=== PATIENT | female | born 1945 ===

== ENCOUNTER 2018-10-29 21:34 | Inpatient (IN) | payer MEDICARE ==
[2018-10-29 21:35] VITALS: BMI 24.4
--- NOTE | 2018-10-29 21:53 | C.PDOC ---
History Of Present Illness 73 year old female with PMHx of CABG, CAD, COPD, HTN and HLD presents to the ED for evaluation of headache, fever and chest pain for the last few days. Patient reports she has been taking unknown antibiotics left over at home. Patient is poor historian. Patient denies SOB, palpitations, nausea, vomit, diarrhea, abdominal pain. Time Seen by Provider: 10/29/18 21:42 Chief Complaint (Nursing): Chest Pain History Per: Patient History/Exam Limitations: no limitations Onset/Duration Of Symptoms: Days Current Symptoms Are (Timing): Still Present Quality: "Pain" Recent travel outside of the [place]: No Additional History Per: Patient Past Medical History Reviewed: Historical Data, Nursing Documentation, Vital Signs Vital Signs: Last Vital Signs Temp 98.5 F 10/29/18 21:42 Pulse 74 10/29/18 21:42 Resp 20 10/29/18 21:42 BP 167/82 H 10/29/18 21:42 Pulse Ox 96 10/29/18 21:42 Primary Care Provider: Cedric Barrientos - Medical History PMH: Anxiety, Arthritis, Back Problems (herniated discs), CAD, CHF, COPD, Depr ession, Diabetes, Deep Vein Thrombosis, Emphysema, HTN, Hypercholesterolemia, Hyperlipidemia Denies: Kidney Stones, Chronic Kidney Disease Surgical History: Appendectomy (1964), CABG (x4), Cholecystectomy (2001), Coronary Stent (x7), Pacemaker (mar 2010), Tonsillectomy (9 yrs old) - [facility] Procedures DRAINAGE OF SIGMOID COLON, ENDO, DIAGN (05/13/15) INJECT/INFUSE NEC (08/10/14) Family History: States: Unknown Family Hx - Social History Hx Tobacco Use: Yes Hx Alcohol Use: No Hx Substance Use: No - Immunization History Hx Tetanus Toxoid Vaccination: No Hx Influenza Vaccination: Yes Hx Pneumococcal Vaccination: Yes Review Of Systems Constitutional: Positive for: Fever. Negative for: Chills Cardiovascular: Positive for: Chest Pain. Negative for: Palpitations Respiratory: Positive for: Cough. Negative for: Shortness of Breath Skin: Negative for: Rash Neurological: Positive for: Headache. Negative for: Weakness, Numbness, Dizziness Physical Exam - Physical Exam Appears: Non-toxic, No Acute Distress Skin: Normal Color, Warm, Dry Head: Atraumatic, Normacephalic Eye(s): bilateral: Normal Inspection Neck: Normal ROM, Supple Chest: Symmetrical Cardiovascular: Rhythm Regular Respiratory: Decreased Breath Sounds (symmetrically), Rales (at the bases bilaterally) Gastrointestinal/Abdominal: Soft, No Tenderness Extremity: Normal ROM, No Tenderness, No Pedal Edema Neurological/Psych: Oriented x3, Normal Speech, Normal Cognition Gait: Steady ED Course And Treatment - Laboratory Results Result Diagrams: 10/29/18 22:20 10/29/18 22:20 ECG: Interpreted By Me, Viewed By Me ECG Rhythm: A Paced Rate From EC (BPM) O2 Sat by Pulse Oximetry: 96 (ON RA) Pulse Ox Interpretation: Normal Medical Decision Making Medical Decision Making: suspect copd/pnaPlan: * EKG * Labs * CXR * Duoneb x2 * Avelox 400 mg IVP * Solumedrol 125 mg IVP * Blood culture * UA cxr mild congestion vs bibasilar atelectasis infiltrate antibiotics given. accepted dr turcios, [facility] service. wheezing symptom simproving but persisetn. Disposition - Disposition Disposition: HOSPITALIZED Disposition Time: 01:00 Condition: STABLE - Clinical Impression Clinical Impression: COPD with acute exacerbation, Chest pain - Scribe Statement The provider has reviewed the documentation as recorded by the Scribe Kavon Licea All medical record entries made by the Scribe were at my direction and personally dictated by me. I have reviewed the chart and agree that the record accurately reflects my personal performance of the history, physical exam, medi [facility]ana decision making, and the department course for this patient. I have also personally directed, reviewed, and agree with the discharge instructions and disposition. Decision To Admit - Pt Status Changed To: Hospital Disposition Of: Observation - . Bed Request Type: Telemetry Admitting Physician: Jeffrey Turcios Patient Diagnosis: COPD with acute exacerbation, Chest pain
[2018-10-29] MEDS ORDERED: Albuterol-Ipratrop 3 mg / 0.5 (3 ml) UD INH STA ×2 (22:09)
[2018-10-29] MEDS ORDERED: MethylPREDNISolone 40 mg Vial IVP STA (22:09)
[2018-10-29 22:25] LABS: BASO % 0.4 % (0.0-2.0); EOS # 0.2 K/uL (0.0-0.7); EOS % 2.1 % (0.0-4.0); HEMOGLOBIN 12.8 g/dL (11.0-16.0); LYMPH # 2.7 K/uL (1.0-4.3); LYMPH % 25.9 % (20.0-40.0); MEAN CORPUSCULAR HEMOGLOBIN 29.5 pg (27.0-31.0); MEAN CORPUSCULAR HGB CONC 33.2 g/dL (33.0-37.0); MEAN PLATELET VOLUME 7.9 fL (7.2-11.7); MONO # 0.8 K/uL (0.0-0.8); MONO % 7.3 % (0.0-10.0); NEUT # 6.8 K/uL (1.8-7.0); NEUT % 64.3 % (50.0-75.0); RBC 4.32 Mil/uL (3.80-5.20); RED CELL DISTRIBUTION WIDTH 13.5 % (11.5-14.5); WHITE BLOOD COUNT 10.6 K/uL (4.8-10.8)
[2018-10-29 22:32] LABS: MEAN CELL VOLUME 88.9 fL (81.0-99.0)
[2018-10-29 22:33] LABS: INR 1.1; PARTIAL THROMBOPLASTIN TIME 37.6 SECONDS (21-34)
[2018-10-29 22:35] LABS: ALB/GLOB RATIO 1.2 (1.0-2.1); ALBUMIN 4.1 g/dL (3.5-5.0); ALT/SGPT 39 U/L (9-52); AST/SGOT 37 U/L (14-36); BLOOD UREA NITROGEN 18 mg/dL (7-17); CALCIUM 9.4 mg/dl (8.6-10.4); GFR NON-AFRICAN AMERICAN 34
[2018-10-29] MEDS ORDERED: Albuterol 0.083% Inhal Sol (2.5 mg/3 mL) UD ONE (22:44)
[2018-10-29] MEDS ORDERED: Ipratropium 0.02% Inhal Soln (0.5 mg/2.5 ml) UD IH ONE (22:45)
[2018-10-29 22:48] LABS: B-TYPE NATRIURETIC PEPTIDE 760 pg/mL (0-900)
[2018-10-29] MEDS ORDERED: Moxifloxacin IV 400mg/250ml NS 400 MG/250 ML BAG IVPB ONE ×2 (22:56→23:09)
[2018-10-29] MEDS ORDERED: guaiFENesin 200 mg/10 ml Syrup UD PO PRN (23:41)
[2018-10-30] MEDS ORDERED: Albuterol HFA 90 mcg/actuation (8 g) IH SCH
[2018-10-30] MEDS: Albuterol-Ipratrop 3 mg / 0.5 (3 ml) UD INH SCH ×4 (01:26→20:27)
[2018-10-30 02:59] LABS: GRANULAR CAST 2 /lpf (0-1); SQUAMOUS EPITHIAL 2 /hpf (0-5); URINE BACTERIA RARE (<OCC); URINE BILIRUBIN NEGATIVE (NEGATIVE); URINE BLOOD NEGATIVE (NEGATIVE); URINE CLARITY Hazy (Clear); URINE COLOR Yellow (YELLOW); URINE GLUCOSE (UA) NORMAL (Normal); URINE LEUKOCYTE ESTERASE 3+ Leu/uL (Negative); URINE PROTEIN NEGATIVE (NEGATIVE)
--- NOTE | 2018-10-30 07:07 | RAD ---
Date of service: 10/29/2018 HISTORY: chest pain COMPARISON: Chest x-ray 06/02/2016 TECHNIQUE: Chest one view . FINDINGS: LUNGS: Questionable mild pulmonary vascular congestion PLEURA: No pleural effusion is identified. CARDIOVASCULAR: Heart size is within normal limits. Atherosclerotic calcifications noted of the aorta. Stable multi lead left-sided cardiac pacemaker/AICD with lead tips overlying the region of the right atrium, right ventricle, and coronary sinus. OSSEOUS STRUCTURES: Median sternotomy wires and mediastinal surgical clips are noted. Mild hypertrophic degenerative changes noted of the bilateral acromioclavicular joints. VISUALIZED UPPER ABDOMEN: Unremarkable. OTHER FINDINGS: None. IMPRESSION: Questionable mild pulmonary vascular congestion. additional findings as above.
[2018-10-30] MEDS ORDERED: Enoxaparin 40 mg Syringe SC SCH (10:00)
[2018-10-30] MEDS ORDERED: Home Med 1 UNIT (Naloxegol Oxalate [Movantik] 25 MG) PO SCH (10:00)
[2018-10-30] MEDS ORDERED: ATORVASTATIN 10 MG PO SCH (10:00)
[2018-10-30] MEDS: Fluticasone Nasal 50 mcg/Spray NS SCH (13:00)
[2018-10-30 15:48] LABS: CK-MB 1.54 ng/mL (0.0-3.38)
[2018-10-30] MEDS: Enoxaparin 30 mg Syringe SC SCH (19:00)
[2018-10-30] MEDS ORDERED: Home Med 1 UNIT (Melatonin [Melatonin] 10 MG) PO SCH (22:00)
--- NOTE | 2018-10-30 22:17 | CP.PCM.CON ---
History of Present Illness - History of Present Illness History of Present Illness: 73 year old female with PMHx of CABG, CAD, COPD, HTN and HLD presents to the ED for evaluation of headache, fever and chest pain for the last few days. Patient reports she has been taking unknown antibiotics left over at home. Patient is poor historian. Patient denies SOB, palpitations, nausea, vomit, diarrhea, abdominal pain. Chief Complaint (Nursing): Chest Pain History Per: Patient History/Exam Limitations: no limitations Onset/Duration Of Symptoms: Days Current Symptoms Are (Timing): Still Present Quality: "Pain" Recent travel outside of the [place]: No Additional History Per: Patient Primary Care Provider: Cedric Barrientos - Medical History PMH: Anxiety, Arthritis, Back Problems (herniated discs), CAD, CHF, COPD, Depression, Diabetes, Deep Vein Thrombosis, Emphysema, HTN, Hypercholesterolemia, Hyperlipidemia Denies: Kidney Stones, Chronic Kidney Disease Surgical History: Appendectomy (1964), CABG (x4), Cholecystectomy (2001), Coronary Stent (x7), Pacemaker (mar 2010), Tonsillectomy (9 yrs old) - [facility] Procedures DRAINAGE OF SIGMOID COLON, ENDO, DIAGN (05/13/15) INJECT/INFUSE NEC (08/10/14) Family History: States: Unknown Family Hx - Social History Hx Tobacco Use: Yes Hx Alcohol Use: No Hx Substance Use: No - Immunization History Hx Tetanus Toxoid Vaccination: No Hx Influenza Vaccination: Yes Hx Pneumococcal Vaccination: Yes Review Of Systems Constitutional: Positive for: Fever. Negative for: Chills Cardiovascular: Positive for: Chest Pain. Negative for: Palpitations Respiratory: Positive for: Cough. Negative for: Shortness of Breath Skin: Negative for: Rash Neurological: Positive for: Headache. Negative for: Weakness, Numbness, Dizziness Physical Exam - Physical Exam Appears: Non-toxic, No Acute Distress Skin: Normal Color, Warm, Dry Head: Atraumatic, Normacephalic Eye(s): bilateral: Normal Inspection Neck: Normal ROM, Supple Chest: Symmetrical Cardiovascular: Rhythm Regular Respiratory: Decreased Breath Sounds (symmetrically), Rales (at the bases bilaterally) Gastrointestinal/Abdominal: Soft, No Tenderness Extremity: Normal ROM, No Tenderness, No Pedal Edema Neurological/Psych: Oriented x3, Normal Speech, Normal Cognition Gait: Steady Past Patient History - Infectious Disease Hx of Infectious Diseases: None - Past Medical History & Family History Past Medical History?: Yes - Past Social History Smoking Status: Light Smoker < 10 Cigarettes Daily - CARDIAC Hx Congestive Heart Failure: Yes Hx Hypercholesterolemia: Yes Hx Hypertension: Yes - PULMONARY Hx Chronic Obstructive Pulmonary Disease (COPD): Yes - NEUROLOGICAL Hx Neurological Disorder: No - HEENT Hx HEENT Problems: Yes Hx Cataracts: Yes (removed) - RENAL Hx Chronic Kidney Disease: No Hx Kidney Stones: No - ENDOCRINE/METABOLIC Hx Diabetes Mellitus Type 2: Yes - HEMATOLOGICAL/ONCOLOGICAL Hx Blood Disorders: No - INTEGUMENTARY Hx Dermatological Problems: No - MUSCULOSKELETAL/RHEUMATOLOGICAL Hx Arthritis: Yes - GASTROINTESTINAL Hx Gastrointestinal Disorders: No - GENITOURINARY/GYNECOLOGICAL Hx Genitourinary Disorders: No - PSYCHIATRIC Hx Anxiety: Yes Hx Depression: Yes Hx Substance Use: No - SURGICAL HISTORY Hx Appendectomy: Yes (1963) Hx Cholecystectomy: Yes (2001) Hx Coronary Artery Bypass Graft: Yes (x4) Hx Coronary Stent: Yes (x7) Hx Tonsillectomy: Yes (9 yrs old) - ANESTHESIA Hx Anesthesia: Yes Hx Anesthesia Reactions: No Hx Malignant Hyperthermia: No Meds Allergies/Adverse Reactions: Allergies Allergy/AdvReac Type Severity Reaction Status Date / Time acetaminophen [From Percocet] Allergy Verified 10/29/18 21:48 allopurinol Allergy Verified 10/29/18 22:06 ketorolac tromethamine Allergy Verified 10/29/18 21:48 [From Toradol] oxycodone HCl [From Percocet] Allergy Verified 10/29/18 21:48 pregabalin [From Lyrica] Allergy Verified 10/29/18 22:08 - Medications Medications: Current Medications Albuterol/Ipratropium (Duoneb 3 Mg/0.5 Mg (3 Ml) Ud) 3 ml INH RQ6 [facility] Last Admin: 10/30/18 20:27 Dose: 3 ml Alprazolam (Xanax) 0.25 mg PO HS [facility] Last Admin: 10/30/18 01:55 Dose: 0.25 mg Aspirin (Ecotrin) 81 mg PO DAILY [facility] Last Admin: 10/30/18 09:15 Dose: 81 mg Carvedilol (Coreg) 12.5 mg PO BID [facility] Last Admin: 10/30/18 19:00 Dose: 12.5 mg Clopidogrel Bisulfate (Plavix) 75 mg PO DAILY [facility] Last Admin: 10/30/18 09:14 Dose: 75 mg Enoxaparin Sodium (Lovenox) 30 mg SC Q24H [facility] Last Admin: 10/30/18 19:00 Dose: 30 mg Fluticasone Propionate (Flonase) 1 spr NS DAILY [facility] Last Admin: 10/30/18 13:00 Dose: 1 spr Furosemide (Lasix) 40 mg IVP DAILY [facility] Last Admin: 10/30/18 19:00 Dose: 40 mg Guaifenesin (Robitussin) 200 mg PO Q4H PRN PRN Reason: Cough and congestion Ceftriaxone Sodium 1 gm/ (Sodium Chloride) 100 mls @ 100 mls/hr IVPB Q12H [facility]; Protocol Last Admin: 10/30/18 11:30 Dose: 100 mls/hr Isosorbide Mononitrate (Imdur) 60 mg PO DAILY [facility] Methylprednisolone (Solu-Medrol) 60 mg IV Q12 [facility] Last Admin: 10/30/18 21:13 Dose: 60 mg Mirtazapine (Remeron) 15 mg PO HS [facility] Last Admin: 10/30/18 21:12 Dose: 15 mg Morphine Sulfate (Morphine) 2 mg IVP Q6H PRN PRN Reason: Pain, severe (8-10) Last Admin: 10/30/18 16:07 Dose: 2 mg Rosuvastatin Calcium (Crestor) 5 mg PO HS [facility] Last Admin: 10/30/18 21:12 Dose: 5 mg Sertraline HCl (Zoloft) 50 mg PO DAILY [facility] Last Admin: 10/30/18 11:29 Dose: 50 mg Results - Vital Signs Recent Vital Signs: Last Vital Signs Temp 98.3 F 10/30/18 15:29 Pulse 80 10/30/18 19:00 Resp 20 10/30/18 15:29 BP 177/78 H 10/30/18 19:00 Pulse Ox 98 10/30/18 15:29 - Labs Result Diagrams: 10/29/18 22:20 10/29/18 22:20 Labs: Laboratory Results - last 24 hr 10/29/18 10/29/18 10/29/18 22:20 22:20 22:20 WBC 10.6 RBC 4.32 Hgb 12.8 Hct 38.4 MCV 88.9 D MCH 29.5 MCHC 33.2 RDW 13.5 Plt Count 317 MPV 7.9 Neut % (Auto) 64.3 Lymph % (Auto) 25.9 Cal[place]oun % (Auto) 7.3 Eos % (Auto) 2.1 Baso % (Auto) 0.4 Neut # (Auto) 6.8 Lymph # (Auto) 2.7 [place]oun # (Auto) 0.8 Eos # (Auto) 0.2 Baso # (Auto) 0.0 PT 12.0 INR 1.1 APTT 37.6 H Sodium 139 Potassium 4.2 Chloride 102 Carbon Dioxide 29 Anion Gap 13 BUN 18 H Creatinine 1.5 H Est GFR ( Amer) 41 Est GFR (Non-Af Amer) 34 Random Glucose 113 H D Calcium 9.4 Total Bilirubin 0.3 AST 37 H ALT 39 Alkaline Phosphatase 139 H Total Creatine Kinase CK-MB (Mass) Troponin I < 0.0120 NT-Pro-B Natriuret Pep 760 Total Protein 7.4 Albumin 4.1 Globulin 3.3 Albumin/Globulin Ratio 1.2 Urine Color Urine Clarity Urine pH Ur Specific [place] Urine Protein Urine Glucose (UA) Urine Ketones Urine Blood Urine Nitrate Urine Bilirubin Urine Urobilinogen Ur Leukocyte Esterase Urine WBC (Auto) Urine RBC (Auto) Ur Squamous Epith Cells Urine Bacteria Hyaline Casts Granular Casts (Auto) 10/30/18 10/30/18 02:51 14:40 WBC RBC Hgb Hct MCV MCH MCHC RDW Plt Count MPV Neut % (Auto) Lymph % (Auto) [place]oun % (Auto) Eos % (Auto) Baso % (Auto) Neut # (Auto) Lymph # (Auto) [place]oun # (Auto) Eos # (Auto) Baso # (Auto) PT INR APTT Sodium Potassium Chloride Carbon Dioxide Anion Gap BUN Creatinine Est GFR ( Amer) Est GFR (Non-Af Amer) Random Glucose Calcium Total Bilirubin AST ALT Alkaline Phosphatase Total Creatine Kinase 69 CK-MB (Mass) 1.54 Troponin I < 0.0120 NT-Pro-B Natriuret Pep Total Protein Albumin Globulin Albumin/Globulin Ratio Urine Color Yellow Urine Clarity Hazy Urine pH 6.0 Ur Specific [place] 1.026 Urine Protein Negative Urine Glucose (UA) Normal Urine Ketones Negative Urine Blood Negative Urine Nitrate Negative Urine Bilirubin Negative Urine Urobilinogen 2.0 H Ur Leukocyte Esterase 3+ H Urine WBC (Auto) 72 H Urine RBC (Auto) 6 H Ur Squamous Epith Cells 2 Urine Bacteria Rare Hyaline Casts 6-10 H Granular Casts (Auto) 2 Assessment & Plan - Assessment and Plan (Free Text) Assessment: 70 y/o woman presents with sx's of COPD exacerbation/bronchitis and pleuritic chest pain clinically improved today * Known BIV AICD (Gen change Jan 2016) [employer] * Known mild ischemic cardiomyopathy EF 45-50% * known apical scar without reversible ischemia on stress test 2014 * EKG: BIV paced rhythm and stable; no arrythmia on tele : * Continue all meds * Check ECHO * F/U ROMIs
--- NOTE | 2018-10-30 22:46 | CP.PCM.HP ---
Present on Admission - Present on Admission Any Indicators Present on Admission: No Past Patient History - Infectious Disease Hx of Infectious Diseases: None - Past Medical History & Family History Past Medical History?: Yes - Past Social History Smoking Status: Light Smoker < 10 Cigarettes Daily - CARDIAC Hx Congestive Heart Failure: Yes Hx Hypercholesterolemia: Yes Hx Hypertension: Yes - PULMONARY Hx Chronic Obstructive Pulmonary Disease (COPD): Yes - NEUROLOGICAL Hx Neurological Disorder: No - HEENT Hx HEENT Problems: Yes Hx Cataracts: Yes (removed) - RENAL Hx Chronic Kidney Disease: No Hx Kidney Stones: No - ENDOCRINE/METABOLIC Hx Diabetes Mellitus Type 2: Yes - HEMATOLOGICAL/ONCOLOGICAL Hx Blood Disorders: No - INTEGUMENTARY Hx Dermatological Problems: No - MUSCULOSKELETAL/RHEUMATOLOGICAL Hx Arthritis: Yes - GASTROINTESTINAL Hx Gastrointestinal Disorders: No - GENITOURINARY/GYNECOLOGICAL Hx Genitourinary Disorders: No - PSYCHIATRIC Hx Anxiety: Yes Hx Depression: Yes Hx Substance Use: No - SURGICAL HISTORY Hx Appendectomy: Yes (1963) Hx Cholecystectomy: Yes (2001) Hx Coronary Artery Bypass Graft: Yes (x4) Hx Coronary Stent: Yes (x7) Hx Tonsillectomy: Yes (9 yrs old) - ANESTHESIA Hx Anesthesia: Yes Hx Anesthesia Reactions: No Hx Malignant Hyperthermia: No Meds Allergies/Adverse Reactions: Allergies Allergy/AdvReac Type Severity Reaction Status Date / Time acetaminophen [From Percocet] Allergy Verified 10/29/18 21:48 allopurinol Allergy Verified 10/29/18 22:06 ketorolac tromethamine Allergy Verified 10/29/18 21:48 [From Toradol] oxycodone HCl [From Percocet] Allergy Verified 10/29/18 21:48 pregabalin [From Lyrica] Allergy Verified 10/29/18 22:08 Results - Vital Signs Recent Vital Signs: Last Vital Signs Temp 98.3 F 10/30/18 15:29 Pulse 80 10/30/18 19:00 Resp 20 10/30/18 15:29 BP 177/78 H 10/30/18 19:00 Pulse Ox 98 10/30/18 15:29 - Labs Result Diagrams: 10/29/18 22:20 10/29/18 22:20 Labs: Laboratory Results - last 24 hr 10/29/18 10/30/18 10/30/18 22:20 02:51 14:40 Total Creatine Kinase 69 CK-MB (Mass) 1.54 Troponin I < 0.0120 < 0.0120 NT-Pro-B Natriuret Pep 760 Urine Color Yellow Urine Clarity Hazy Urine pH 6.0 Ur Specific [place] 1.026 Urine Protein Negative Urine Glucose (UA) Normal Urine Ketones Negative Urine Blood Negative Urine Nitrate Negative Urine Bilirubin Negative Urine Urobilinogen 2.0 H Ur Leukocyte Esterase 3+ H Urine WBC (Auto) 72 H Urine RBC (Auto) 6 H Ur Squamous Epith Cells 2 Urine Bacteria Rare Hyaline Casts 6-10 H Granular Casts (Auto) 2
[2018-10-31] MEDS: Alum-Mag Hydrox-Simethicone Susp (30 mL) PO SCH ×3 (00:26→17:29)
--- NOTE | 2018-10-31 00:29 | CARD ---
APPROVED REPORT Date of service: 10/29/2018 EKG Measurement Heart [id number] <Conclusion> Atrial-sensed ventricular-paced rhythm Abnormal ECG
[2018-10-31] MEDS: Albuterol-Ipratrop 3 mg / 0.5 (3 ml) UD INH SCH ×4 (01:24→19:21)
--- NOTE | 2018-10-31 04:48 | HP ---
CHIEF COMPLAINT: Chest pain and shortness of breath. HISTORY OF PRESENT ILLNESS: This is a 73-year-old female with a history of COPD, diabetes, hypertension, hyperlipidemia, coronary artery disease, status post CABG. She is compliant with her diet, medication, and followup. She is having headache, fever, and chest pain for last two days. Along with that, she has dyspnea at rest and dyspnea on exertion. She denied any orthopnea or PND. The patient has been taking some antibiotics at home, which she is not sure about the reason and the name of the antibiotics. She patient has cough and congestion. She has white sputum production. She denied any fever or chills. She denied any history of joint pain or hip pain. She has burning sensation in the lower chest wall area. She has cough. She denied any rectal bleed. She denied any history of joint pain and hip pain. She has tingling and numbness in the leg and when she stands up for long period of time, her legs swell up. She denied any history of skin rash, itchy eyes, and itchy nose. CURRENT MEDICATIONS AT HOME: The patient is on DuoNeb, ProAir, Flonase, Movantik, Centrum, Ecotrin, Imdur, Zoloft, Crestor, Remeron, melatonin, Lasix, Plavix, Coreg, Lipitor, and Xanax. SOCIAL HISTORY: Ex-smoker. Non-ETOH user. PAST MEDICAL HISTORY: Coronary artery disease, status post CABG, diabetes, hypertension, hyperlipidemia. FAMILY HISTORY: Noncontributory. PHYSICAL EXAMINATION: GENERAL: An elderly female in minimal respiratory distress. VITAL SIGNS: Blood pressure 177/78, pulse 80, respiratory rate 20, temperature 98.3. SKIN: Senile turgor. No bruises. No purpura. She has had multiple scars from previous surgeries on chest wall and leg. HEENT: Atraumatic and normocephalic. Negative pallor. Negative jaundice. Extraocular movements are intact. NECK: Supple. Negative JVD. Negative thyromegaly. CHEST WALL: Bilateral symmetrical expansion. There is a midline scar of old surgery. LUNGS: Bilateral basal crepitation. No rhonchi. Bilateral equal air entry. ABDOMEN: Soft. Nontender. Bowel sounds are positive. RECTAL: No masses. No bleeding. EXTREMITIES: +1 pitting edema. CENTRAL NERVOUS SYSTEM: Awake, alert and oriented x3. Rest of CAPABILITY LEAD exam is normal. ASSESSMENT: 1. Acute exacerbation of chronic obstructive pulmonary disease. 2. Acute exacerbation of congestive heart failure. 3. Atypical chest pain. 4. Hypertension. PLAN: Admit. Detailed orders are written. Seen and examined. Jeffrey Turcios MD
[2018-10-31 08:44] LABS: CALCIUM 9.7 mg/dl (8.6-10.4)
[2018-10-31] MEDS: Fluticasone Nasal 50 mcg/Spray NS SCH (09:15)
[2018-10-31] MEDS: Enoxaparin 30 mg Syringe SC SCH (16:29)
--- NOTE | 2018-10-31 21:57 | CP.PCM.PN ---
Subjective - Date & Time of Evaluation Date of Evaluation: 10/31/18 Time of Evaluation: 08:30 - Subjective Subjective: Review Of Systems Constitutional: Positive for: Fever. Negative for: Chills Cardiovascular: Positive for: Chest Pain. Negative for: Palpitations Respiratory: Positive for: Cough. Negative for: Shortness of Breath Skin: Negative for: Rash Neurological: Positive for: Headache. Negative for: Weakness, Numbness, Dizziness Physical Exam - Physical Exam Appears: Non-toxic, No Acute Distress Skin: Normal Color, Warm, Dry Head: Atraumatic, Normacephalic Eye(s): bilateral: Normal Inspection Neck: Normal ROM, Supple Chest: Symmetrical Cardiovascular: Rhythm Regular Respiratory: Decreased Breath Sounds (symmetrically), Rales (at the bases bilaterally) Gastrointestinal/Abdominal: Soft, No Tenderness Extremity: Normal ROM, No Tenderness, No Pedal Edema Neurological/Psych: Oriented x3, Normal Speech, Normal Cognition Gait: Steady Assessment & Plan - Assessment and Plan (Free Text) Assessment/Plan: 70 y/o woman presents with sx's of COPD exacerbation/bronchitis and pleuritic chest pain clinically improved today * Known BIV AICD (Gen change Jan 2016) [employer] * Known mild ischemic cardiomyopathy EF 45-50% * known apical scar without reversible ischemia on stress test 2014 * EKG: BIV paced rhythm and stable; no arrythmia on tele * Continue all meds * Check ECHO * F/U ROMIs Objective - Vital Signs/Intake and Output Vital Signs (last 24 hours): Temp Pulse Resp BP Pulse Ox 99.1 F 76 20 112/66 95 10/31/18 15:42 10/31/18 16:00 10/31/18 15:42 10/31/18 17:29 10/31/18 15:42 - Medications Medications: Current Medications Al Hydrox/Mg Hydrox/Simethicone (Maalox Plus 30 Ml) 30 ml PO BID [facility] Last Admin: 10/31/18 17:29 Dose: 30 ml Albuterol/Ipratropium (Duoneb 3 Mg/0.5 Mg (3 Ml) Ud) 3 ml INH RQ6 [facility] Last Admin: 10/31/18 19:21 Dose: 3 ml Alprazolam (Xanax) 0.25 mg PO HS [facility] Last Admin: 10/31/18 21:36 Dose: 0.25 mg Aspirin (Ecotrin) 81 mg PO DAILY [facility] Last Admin: 10/31/18 09:16 Dose: 81 mg Carvedilol (Coreg) 12.5 mg PO BID [facility] Last Admin: 10/31/18 17:29 Dose: 12.5 mg Clopidogrel Bisulfate (Plavix) 75 mg PO DAILY [facility] Last Admin: 10/31/18 09:17 Dose: 75 mg Enoxaparin Sodium (Lovenox) 30 mg SC Q24H [facility] Last Admin: 10/31/18 16:29 Dose: 30 mg Fluticasone Propionate (Flonase) 1 spr NS DAILY [facility] Last Admin: 10/31/18 09:15 Dose: 1 spr Furosemide (Lasix) 40 mg IVP DAILY [facility] Last Admin: 10/31/18 09:18 Dose: 40 mg Guaifenesin (Robitussin) 200 mg PO Q4H PRN PRN Reason: Cough and congestion Ceftriaxone Sodium 1 gm/ (Sodium Chloride) 100 mls @ 100 mls/hr IVPB Q12H [facility]; Protocol Last Admin: 10/31/18 11:15 Dose: 100 mls/hr Isosorbide Mononitrate (Imdur) 60 mg PO DAILY [facility] Last Admin: 10/31/18 09:17 Dose: 60 mg Methylprednisolone (Solu-Medrol) 60 mg IV Q12 [facility] Last Admin: 10/31/18 21:36 Dose: 60 mg Mirtazapine (Remeron) 15 mg PO HS [facility] Last Admin: 10/31/18 21:36 Dose: 15 mg Morphine Sulfate (Morphine) 2 mg IVP Q6H PRN PRN Reason: Pain, severe (8-10) Last Admin: 10/30/18 22:12 Dose: 2 mg Rosuvastatin Calcium (Crestor) 5 mg PO HS [facility] Last Admin: 10/31/18 21:36 Dose: 5 mg Sertraline HCl (Zoloft) 50 mg PO DAILY [facility] Last Admin: 10/31/18 09:17 Dose: 50 mg - Labs Labs: 10/29/18 22:20 10/31/18 08:17 PT 12.0 SECONDS (9.7-12.2) 10/29/18 22:20 INR 1.1 10/29/18 22:20 APTT 37.6 SECONDS (21-34) H 10/29/18 22:20
--- NOTE | 2018-10-31 23:10 | PN ---
DATE: 10/31/2018 SUBJECTIVE: The patient has decreased upper abdominal burning. She is less short of breath. She is coughing. She is wheezing. She is afebrile. Positive shortness of breath. No nausea or vomiting or generalized weakness. She is anxious. No fever. PHYSICAL EXAMINATION: VITAL SIGNS: Blood pressure is 134/80, pulse 77, respiratory rate 16, and temperature 99. LUNGS: Bilateral basilar crepitations. Decreased air entry. CARDIOVASCULAR SYSTEM: S1 and S2, regular. ABDOMEN: Soft. Nontender. Bowel sounds are positive. ASSESSMENT: 1. Exacerbation of chronic obstructive pulmonary disease. 2. Exacerbation of congestive heart failure. 3. Coronary artery disease. PLAN: Continue current medications, diuretics, intake and output. Monitor the patient. Cardio and Pulmonary followup. Jeffrey Turcios MD
[2018-11-01] MEDS: Albuterol-Ipratrop 3 mg / 0.5 (3 ml) UD INH SCH ×4 (01:48→19:40)
[2018-11-01] MEDS: Alum-Mag Hydrox-Simethicone Susp (30 mL) PO SCH ×2 (09:28→17:45)
[2018-11-01] MEDS: Fluticasone Nasal 50 mcg/Spray NS SCH (09:43)
[2018-11-01] MEDS: Enoxaparin 30 mg Syringe SC SCH (16:45)
[2018-11-02] MEDS: Albuterol-Ipratrop 3 mg / 0.5 (3 ml) UD INH SCH ×4 (01:25→19:46)
--- NOTE | 2018-11-02 07:12 | CP.PCM.PN ---
Subjective - Date & Time of Evaluation Date of Evaluation: 11/01/18 Time of Evaluation: 18:05 - Subjective Subjective: Patient seen and evaluated Covering for Drs. Jones/Landon No additional events Review Of Systems Constitutional: Positive for: Fever. Negative for: Chills Cardiovascular: Positive for: Chest Pain. Negative for: Palpitations Respiratory: Positive for: Cough. Negative for: Shortness of Breath Skin: Negative for: Rash Neurological: Positive for: Headache. Negative for: Weakness, Numbness, Dizziness Physical Exam - Physical Exam Appears: Non-toxic, No Acute Distress Skin: Normal Color, Warm, Dry Head: Atraumatic, Normacephalic Eye(s): bilateral: Normal Inspection Neck: Normal ROM, Supple Chest: Symmetrical Cardiovascular: Rhythm Regular Respiratory: Decreased Breath Sounds (symmetrically), Rales (at the bases bilaterally) Gastrointestinal/Abdominal: Soft, No Tenderness Extremity: Normal ROM, No Tenderness, No Pedal Edema Neurological/Psych: Oriented x3, Normal Speech, Normal Cognition Gait: Steady Assessment & Plan - Assessment and Plan (Free Text) Assessment/Plan: 70 y/o woman presents with sx's of COPD exacerbation/bronchitis and pleuritic chest pain * Known BIV AICD (Gen change Jan 2016) [employer] * Known mild ischemic cardiomyopathy EF 45-50% * known apical scar without reversible ischemia on stress test 2014 * EKG: BIV paced rhythm and stable; no arrythmia on tele * Continue all meds * Check ECHO * [place] x 2 normal Objective - Vital Signs/Intake and Output Vital Signs (last 24 hours): Temp Pulse Resp BP Pulse Ox 97.4 F L 79 20 168/73 H 96 11/01/18 23:35 11/02/18 04:18 11/01/18 23:35 11/01/18 23:35 11/01/18 23:35 Intake and Output: 11/02/18 11/02/18 06:59 18:59 Intake Total 400 Balance 400 - Medications Medications: Current Medications Al Hydrox/Mg Hydrox/Simethicone (Maalox Plus 30 Ml) 30 ml PO BID [facility] Last Admin: 11/01/18 17:45 Dose: 30 ml Albuterol/Ipratropium (Duoneb 3 Mg/0.5 Mg (3 Ml) Ud) 3 ml INH RQ6 [facility] Last Admin: 11/02/18 01:25 Dose: Not Given Alprazolam (Xanax) 0.25 mg PO HS [facility] Last Admin: 11/01/18 21:52 Dose: 0.25 mg Aspirin (Ecotrin) 81 mg PO DAILY [facility] Last Admin: 11/01/18 09:29 Dose: 81 mg Carvedilol (Coreg) 12.5 mg PO BID [facility] Last Admin: 11/01/18 17:45 Dose: 12.5 mg Clopidogrel Bisulfate (Plavix) 75 mg PO DAILY [facility] Last Admin: 11/01/18 09:28 Dose: 75 mg Enoxaparin Sodium (Lovenox) 30 mg SC Q24H [facility] Last Admin: 11/01/18 16:45 Dose: 30 mg Fluticasone Propionate (Flonase) 1 spr NS DAILY [facility] Last Admin: 11/01/18 09:43 Dose: 1 spr Furosemide (Lasix) 40 mg IVP DAILY [facility] Last Admin: 11/01/18 09:29 Dose: 40 mg Guaifenesin (Robitussin) 200 mg PO Q4H PRN PRN Reason: Cough and congestion Isosorbide Mononitrate (Imdur) 60 mg PO DAILY [facility] Last Admin: 11/01/18 09:28 Dose: 60 mg Methylprednisolone (Solu-Medrol) 60 mg IV Q12 [facility] Last Admin: 11/01/18 21:52 Dose: 60 mg Mirtazapine (Remeron) 15 mg PO HS [facility] Last Admin: 11/01/18 21:52 Dose: 15 mg Morphine Sulfate (Morphine) 2 mg IVP Q6H PRN PRN Reason: Pain, severe (8-10) Last Admin: 10/30/18 22:12 Dose: 2 mg Rosuvastatin Calcium (Crestor) 5 mg PO HS [facility] Last Admin: 11/01/18 21:52 Dose: 5 mg Sertraline HCl (Zoloft) 50 mg PO DAILY [facility] Last Admin: 11/01/18 09:28 Dose: 50 mg - Labs Labs: 10/29/18 22:20 10/31/18 08:17 PT 12.0 SECONDS (9.7-12.2) 10/29/18 22:20 INR 1.1 10/29/18 22:20 APTT 37.6 SECONDS (21-34) H 10/29/18 22:20
[2018-11-02] MEDS: Alum-Mag Hydrox-Simethicone Susp (30 mL) PO SCH ×2 (09:57→18:22)
[2018-11-02] MEDS: Fluticasone Nasal 50 mcg/Spray NS SCH (10:06)
[2018-11-02 16:09] VITALS: RESP 20
[2018-11-02] MEDS: Enoxaparin 30 mg Syringe SC SCH (16:21)
--- NOTE | 2018-11-02 19:23 | CP.PCM.PN ---
Subjective - Date & Time of Evaluation Date of Evaluation: 11/02/18 Time of Evaluation: 08:35 - Subjective Subjective: Patient seen and evaluated Covering for Drs. Jones/Landon Improved dyspnea and chest pain Review Of Systems Constitutional: Positive for: Fever. Negative for: Chills Cardiovascular: Positive for: Chest Pain. Negative for: Palpitations Respiratory: Positive for: Cough. Negative for: Shortness of Breath Skin: Negative for: Rash Neurological: Positive for: Headache. Negative for: Weakness, Numbness, Dizziness Physical Exam - Physical Exam Appears: Non-toxic, No Acute Distress Skin: Normal Color, Warm, Dry Head: Atraumatic, Normacephalic Eye(s): bilateral: Normal Inspection Neck: Normal ROM, Supple Chest: Symmetrical Cardiovascular: Rhythm Regular Respiratory: Decreased Breath Sounds (symmetrically), Rales (at the bases bilaterally) Gastrointestinal/Abdominal: Soft, No Tenderness Extremity: Normal ROM, No Tenderness, No Pedal Edema Neurological/Psych: Oriented x3, Normal Speech, Normal Cognition Gait: Steady Assessment & Plan - Assessment and Plan (Free Text) Assessment/Plan: 70 y/o woman presents with sx's of COPD exacerbation/bronchitis and pleuritic chest pain * Known BIV AICD (Gen change Jan 2016) [employer] * Known mild ischemic cardiomyopathy EF 45-50% * known apical scar without reversible ischemia on stress test 2014 * EKG: BIV paced rhythm and stable; no arrythmia on tele * Continue all meds * Check ECHO * ROMIs normal Objective - Vital Signs/Intake and Output Vital Signs (last 24 hours): Temp Pulse Resp BP Pulse Ox 98.0 F 75 20 143/81 96 11/02/18 15:07 11/02/18 16:00 11/02/18 15:07 11/02/18 18:21 11/02/18 15:07 - Medications Medications: Current Medications Al Hydrox/Mg Hydrox/Simethicone (Maalox Plus 30 Ml) 30 ml PO BID [facility] Last Admin: 11/02/18 18:22 Dose: 30 ml Albuterol/Ipratropium (Duoneb 3 Mg/0.5 Mg (3 Ml) Ud) 3 ml INH RQ6 [facility] Last Admin: 11/02/18 14:30 Dose: 3 ml Alprazolam (Xanax) 0.25 mg PO HS [facility] Last Admin: 11/01/18 21:52 Dose: 0.25 mg Aspirin (Ecotrin) 81 mg PO DAILY [facility] Last Admin: 11/02/18 09:58 Dose: 81 mg Carvedilol (Coreg) 12.5 mg PO BID [facility] Last Admin: 11/02/18 18:21 Dose: 12.5 mg Clopidogrel Bisulfate (Plavix) 75 mg PO DAILY [facility] Last Admin: 11/02/18 09:58 Dose: 75 mg Enoxaparin Sodium (Lovenox) 30 mg SC Q24H [facility] Last Admin: 11/02/18 16:21 Dose: 30 mg Fluticasone Propionate (Flonase) 1 spr NS DAILY [facility] Last Admin: 11/02/18 10:06 Dose: Not Given Furosemide (Lasix) 40 mg IVP DAILY [facility] Last Admin: 11/02/18 09:59 Dose: 40 mg Guaifenesin (Robitussin) 200 mg PO Q4H PRN PRN Reason: Cough and congestion Isosorbide Mononitrate (Imdur) 60 mg PO DAILY [facility] Last Admin: 11/02/18 09:58 Dose: 60 mg Lactulose (Enulose) 20 gm PO DAILY PRN PRN Reason: Constipation Methylprednisolone (Solu-Medrol) 60 mg IV Q12 [facility] Last Admin: 11/02/18 09:58 Dose: 60 mg Mirtazapine (Remeron) 15 mg PO HS [facility] Last Admin: 11/01/18 21:52 Dose: 15 mg Morphine Sulfate (Morphine) 2 mg IVP Q6H PRN PRN Reason: Pain, severe (8-10) Last Admin: 10/30/18 22:12 Dose: 2 mg Rosuvastatin Calcium (Crestor) 5 mg PO HS [facility] Last Admin: 11/01/18 21:52 Dose: 5 mg Sertraline HCl (Zoloft) 50 mg PO DAILY [facility] Last Admin: 11/02/18 09:58 Dose: 50 mg - Labs Labs: 10/29/18 22:20 10/31/18 08:17 PT 12.0 SECONDS (9.7-12.2) 10/29/18 22:20 INR 1.1 10/29/18 22:20 APTT 37.6 SECONDS (21-34) H 10/29/18 22:20
--- NOTE | 2018-11-02 22:07 | CP.PCM.PN ---
Subjective - Date & Time of Evaluation Date of Evaluation: 10/31/18 Time of Evaluation: 08:40 - Subjective Subjective: dict Objective - Vital Signs/Intake and Output Vital Signs (last 24 hours): Temp Pulse Resp BP Pulse Ox 98.0 F 75 20 143/81 96 11/02/18 15:07 11/02/18 16:00 11/02/18 15:07 11/02/18 18:21 11/02/18 15:07 - Medications Medications: Current Medications Al Hydrox/Mg Hydrox/Simethicone (Maalox Plus 30 Ml) 30 ml PO BID [facility] Last Admin: 11/02/18 18:22 Dose: 30 ml Albuterol/Ipratropium (Duoneb 3 Mg/0.5 Mg (3 Ml) Ud) 3 ml INH RQ6 [facility] Last Admin: 11/02/18 19:46 Dose: 3 ml Alprazolam (Xanax) 0.25 mg PO HS [facility] Last Admin: 11/02/18 21:47 Dose: 0.25 mg Aspirin (Ecotrin) 81 mg PO DAILY [facility] Last Admin: 11/02/18 09:58 Dose: 81 mg Carvedilol (Coreg) 12.5 mg PO BID [facility] Last Admin: 11/02/18 18:21 Dose: 12.5 mg Clopidogrel Bisulfate (Plavix) 75 mg PO DAILY [facility] Last Admin: 11/02/18 09:58 Dose: 75 mg Enoxaparin Sodium (Lovenox) 30 mg SC Q24H [facility] Last Admin: 11/02/18 16:21 Dose: 30 mg Fluticasone Propionate (Flonase) 1 spr NS DAILY [facility] Last Admin: 11/02/18 10:06 Dose: Not Given Furosemide (Lasix) 40 mg IVP DAILY [facility] Last Admin: 11/02/18 09:59 Dose: 40 mg Guaifenesin (Robitussin) 200 mg PO Q4H PRN PRN Reason: Cough and congestion Isosorbide Mononitrate (Imdur) 60 mg PO DAILY [facility] Last Admin: 11/02/18 09:58 Dose: 60 mg Lactulose (Enulose) 20 gm PO DAILY PRN PRN Reason: Constipation Methylprednisolone (Solu-Medrol) 60 mg IV Q12 [facility] Last Admin: 11/02/18 21:48 Dose: 60 mg Mirtazapine (Remeron) 15 mg PO HS [facility] Last Admin: 11/02/18 21:48 Dose: 15 mg Morphine Sulfate (Morphine) 2 mg IVP Q6H PRN PRN Reason: Pain, severe (8-10) Last Admin: 10/30/18 22:12 Dose: 2 mg Rosuvastatin Calcium (Crestor) 5 mg PO HS [facility] Last Admin: 11/02/18 21:47 Dose: 5 mg Sertraline HCl (Zoloft) 50 mg PO DAILY [facility] Last Admin: 11/02/18 09:58 Dose: 50 mg - Labs Labs: 10/29/18 22:20 10/31/18 08:17 PT 12.0 SECONDS (9.7-12.2) 10/29/18 22:20 INR 1.1 10/29/18 22:20 APTT 37.6 SECONDS (21-34) H 10/29/18 22:20
--- NOTE | 2018-11-02 22:08 | CP.PCM.PN ---
Subjective - Date & Time of Evaluation Date of Evaluation: 11/02/18 Time of Evaluation: 08:40 - Subjective Subjective: dict Objective - Vital Signs/Intake and Output Vital Signs (last 24 hours): Temp Pulse Resp BP Pulse Ox 98.0 F 75 20 143/81 96 11/02/18 15:07 11/02/18 16:00 11/02/18 15:07 11/02/18 18:21 11/02/18 15:07 - Medications Medications: Current Medications Al Hydrox/Mg Hydrox/Simethicone (Maalox Plus 30 Ml) 30 ml PO BID [facility] Last Admin: 11/02/18 18:22 Dose: 30 ml Albuterol/Ipratropium (Duoneb 3 Mg/0.5 Mg (3 Ml) Ud) 3 ml INH RQ6 [facility] Last Admin: 11/02/18 19:46 Dose: 3 ml Alprazolam (Xanax) 0.25 mg PO HS [facility] Last Admin: 11/02/18 21:47 Dose: 0.25 mg Aspirin (Ecotrin) 81 mg PO DAILY [facility] Last Admin: 11/02/18 09:58 Dose: 81 mg Carvedilol (Coreg) 12.5 mg PO BID [facility] Last Admin: 11/02/18 18:21 Dose: 12.5 mg Clopidogrel Bisulfate (Plavix) 75 mg PO DAILY [facility] Last Admin: 11/02/18 09:58 Dose: 75 mg Enoxaparin Sodium (Lovenox) 30 mg SC Q24H [facility] Last Admin: 11/02/18 16:21 Dose: 30 mg Fluticasone Propionate (Flonase) 1 spr NS DAILY [facility] Last Admin: 11/02/18 10:06 Dose: Not Given Furosemide (Lasix) 40 mg IVP DAILY [facility] Last Admin: 11/02/18 09:59 Dose: 40 mg Guaifenesin (Robitussin) 200 mg PO Q4H PRN PRN Reason: Cough and congestion Isosorbide Mononitrate (Imdur) 60 mg PO DAILY [facility] Last Admin: 11/02/18 09:58 Dose: 60 mg Lactulose (Enulose) 20 gm PO DAILY PRN PRN Reason: Constipation Methylprednisolone (Solu-Medrol) 60 mg IV Q12 [facility] Last Admin: 11/02/18 21:48 Dose: 60 mg Mirtazapine (Remeron) 15 mg PO HS [facility] Last Admin: 11/02/18 21:48 Dose: 15 mg Morphine Sulfate (Morphine) 2 mg IVP Q6H PRN PRN Reason: Pain, severe (8-10) Last Admin: 10/30/18 22:12 Dose: 2 mg Rosuvastatin Calcium (Crestor) 5 mg PO HS [facility] Last Admin: 11/02/18 21:47 Dose: 5 mg Sertraline HCl (Zoloft) 50 mg PO DAILY [facility] Last Admin: 11/02/18 09:58 Dose: 50 mg - Labs Labs: 10/29/18 22:20 10/31/18 08:17 PT 12.0 SECONDS (9.7-12.2) 10/29/18 22:20 INR 1.1 10/29/18 22:20 APTT 37.6 SECONDS (21-34) H 10/29/18 22:20
--- NOTE | 2018-11-02 22:08 | CP.PCM.PN ---
Subjective - Date & Time of Evaluation Date of Evaluation: 11/01/18 Time of Evaluation: 08:40 - Subjective Subjective: dict Objective - Vital Signs/Intake and Output Vital Signs (last 24 hours): Temp Pulse Resp BP Pulse Ox 98.0 F 75 20 143/81 96 11/02/18 15:07 11/02/18 16:00 11/02/18 15:07 11/02/18 18:21 11/02/18 15:07 - Medications Medications: Current Medications Al Hydrox/Mg Hydrox/Simethicone (Maalox Plus 30 Ml) 30 ml PO BID [facility] Last Admin: 11/02/18 18:22 Dose: 30 ml Albuterol/Ipratropium (Duoneb 3 Mg/0.5 Mg (3 Ml) Ud) 3 ml INH RQ6 [facility] Last Admin: 11/02/18 19:46 Dose: 3 ml Alprazolam (Xanax) 0.25 mg PO HS [facility] Last Admin: 11/02/18 21:47 Dose: 0.25 mg Aspirin (Ecotrin) 81 mg PO DAILY [facility] Last Admin: 11/02/18 09:58 Dose: 81 mg Carvedilol (Coreg) 12.5 mg PO BID [facility] Last Admin: 11/02/18 18:21 Dose: 12.5 mg Clopidogrel Bisulfate (Plavix) 75 mg PO DAILY [facility] Last Admin: 11/02/18 09:58 Dose: 75 mg Enoxaparin Sodium (Lovenox) 30 mg SC Q24H [facility] Last Admin: 11/02/18 16:21 Dose: 30 mg Fluticasone Propionate (Flonase) 1 spr NS DAILY [facility] Last Admin: 11/02/18 10:06 Dose: Not Given Furosemide (Lasix) 40 mg IVP DAILY [facility] Last Admin: 11/02/18 09:59 Dose: 40 mg Guaifenesin (Robitussin) 200 mg PO Q4H PRN PRN Reason: Cough and congestion Isosorbide Mononitrate (Imdur) 60 mg PO DAILY [facility] Last Admin: 11/02/18 09:58 Dose: 60 mg Lactulose (Enulose) 20 gm PO DAILY PRN PRN Reason: Constipation Methylprednisolone (Solu-Medrol) 60 mg IV Q12 [facility] Last Admin: 11/02/18 21:48 Dose: 60 mg Mirtazapine (Remeron) 15 mg PO HS [facility] Last Admin: 11/02/18 21:48 Dose: 15 mg Morphine Sulfate (Morphine) 2 mg IVP Q6H PRN PRN Reason: Pain, severe (8-10) Last Admin: 10/30/18 22:12 Dose: 2 mg Rosuvastatin Calcium (Crestor) 5 mg PO HS [facility] Last Admin: 11/02/18 21:47 Dose: 5 mg Sertraline HCl (Zoloft) 50 mg PO DAILY [facility] Last Admin: 11/02/18 09:58 Dose: 50 mg - Labs Labs: 10/29/18 22:20 10/31/18 08:17 PT 12.0 SECONDS (9.7-12.2) 10/29/18 22:20 INR 1.1 10/29/18 22:20 APTT 37.6 SECONDS (21-34) H 10/29/18 22:20
[2018-11-03] MEDS: Albuterol-Ipratrop 3 mg / 0.5 (3 ml) UD INH SCH ×2 (01:24→08:15)
--- NOTE | 2018-11-03 01:32 | PN ---
DATE: 11/02/2018 SUBJECTIVE: The patient is less short of breath, less cough, less wheezing. No fever or chills. She has been seen by Cardiology and Pulmonary. PHYSICAL EXAMINATION: VITAL SIGNS: Blood pressure 143/81, pulse 72, respiratory rate 20, temperature 98. LUNGS: Bilateral basal rales. Decreased air entry. CARDIOVASCULAR SYSTEM: S1 and S2, regular. ABDOMEN: Soft. ASSESSMENT: 1. Congestive heart failure. 2. Exacerbation of chronic obstructive pulmonary disease. 3. Hypertension. 4. Coronary artery disease. PLAN: Medical management. Diuretics. Intake and output. Cardiology and Pulmonary followup. Jeffrey Turcios MD
[2018-11-03 07:33] VITALS: BP 153/84; PULSE 68; TEMP 98.3; O2SAT 94
[2018-11-03 07:54] LABS: HEMOGLOBIN 14.3 g/dL (11.0-16.0); MEAN CELL VOLUME 88.2 fL (81.0-99.0); MEAN CORPUSCULAR HEMOGLOBIN 30.3 pg (27.0-31.0); MEAN CORPUSCULAR HGB CONC 34.4 g/dL (33.0-37.0); MEAN PLATELET VOLUME 8.4 fL (7.2-11.7); RBC 4.72 Mil/uL (3.80-5.20); RED CELL DISTRIBUTION WIDTH 13.8 % (11.5-14.5); WHITE BLOOD COUNT 11.4 K/uL (4.8-10.8)
[2018-11-03 08:00] LABS: BLOOD UREA NITROGEN 35 mg/dL (7-17); CALCIUM 9.8 mg/dl (8.6-10.4); GFR NON-AFRICAN AMERICAN > 60
[2018-11-03] MEDS: Fluticasone Nasal 50 mcg/Spray NS SCH (10:10)
[2018-11-03] MEDS: Alum-Mag Hydrox-Simethicone Susp (30 mL) PO SCH (10:11)
--- NOTE | 2018-11-03 11:33 | CP.PCM.PN ---
Subjective - Date & Time of Evaluation Date of Evaluation: 11/03/18 Time of Evaluation: 11:20 - Subjective Subjective: Patient seen today , denies any chest pain, sob, dizziness, palpitations, cough or congestion , wants to go home vss and labs reviewed - stable troponin x - 3 negative Objective - Vital Signs/Intake and Output Vital Signs (last 24 hours): Temp Pulse Resp BP Pulse Ox 98.3 F 68 20 153/84 H 94 L 11/03/18 07:32 11/03/18 07:32 11/03/18 07:32 11/03/18 10:13 11/03/18 07:32 Intake and Output: 11/03/18 11/03/18 06:59 18:59 Intake Total 480 Balance 480 - Medications Medications: Current Medications Al Hydrox/Mg Hydrox/Simethicone (Maalox Plus 30 Ml) 30 ml PO BID [facility] Last Admin: 11/03/18 10:11 Dose: 30 ml Albuterol/Ipratropium (Duoneb 3 Mg/0.5 Mg (3 Ml) Ud) 3 ml INH RQ6 [facility] Last Admin: 11/03/18 08:15 Dose: 3 ml Alprazolam (Xanax) 0.25 mg PO HS [facility] Last Admin: 11/02/18 21:47 Dose: 0.25 mg Aspirin (Ecotrin) 81 mg PO DAILY [facility] Last Admin: 11/03/18 10:13 Dose: 81 mg Carvedilol (Coreg) 12.5 mg PO BID [facility] Last Admin: 11/03/18 10:12 Dose: 12.5 mg Clopidogrel Bisulfate (Plavix) 75 mg PO DAILY [facility] Last Admin: 11/03/18 10:12 Dose: 75 mg Enoxaparin Sodium (Lovenox) 30 mg SC Q24H [facility] Last Admin: 11/02/18 16:21 Dose: 30 mg Fluticasone Propionate (Flonase) 1 spr NS DAILY [facility] Last Admin: 11/03/18 10:10 Dose: Not Given Furosemide (Lasix) 40 mg IVP DAILY [facility] Last Admin: 11/03/18 10:13 Dose: 40 mg Guaifenesin (Robitussin) 200 mg PO Q4H PRN PRN Reason: Cough and congestion Isosorbide Mononitrate (Imdur) 60 mg PO DAILY [facility] Last Admin: 11/03/18 10:13 Dose: 60 mg Lactulose (Enulose) 20 gm PO DAILY PRN PRN Reason: Constipation Methylprednisolone (Solu-Medrol) 60 mg IV Q12 [facility] Last Admin: 11/03/18 10:11 Dose: 60 mg Mirtazapine (Remeron) 15 mg PO HS [facility] Last Admin: 11/02/18 21:48 Dose: 15 mg Morphine Sulfate (Morphine) 2 mg IVP Q6H PRN PRN Reason: Pain, severe (8-10) Last Admin: 10/30/18 22:12 Dose: 2 mg Rosuvastatin Calcium (Crestor) 5 mg PO HS [facility] Last Admin: 11/02/18 21:47 Dose: 5 mg Sertraline HCl (Zoloft) 50 mg PO DAILY [facility] Last Admin: 11/03/18 10:12 Dose: 50 mg - Labs Labs: 11/03/18 07:33 11/03/18 07:33 PT 12.0 SECONDS (9.7-12.2) 10/29/18 22:20 INR 1.1 10/29/18 22:20 APTT 37.6 SECONDS (21-34) H 10/29/18 22:20 Assessment and Plan - Assessment and Plan (Free Text) Assessment: A/P 73 year old female with PMHx of CABG, CAD, COPD, HTN and HLD presents to the ED for evaluation of headache, fever and chest pain troponin x - [address] Anderson , continue current medications an d recommends echo Echo ordered and patient refused to stay and do echo, states she will follow up with Dr. Rob office ( her manager center) D/w Dr. Turcios cleared for discharge home today and f/u with Dr. Jones office Discharge plan discussed with patient who understands and agrees with plan Patient instructed to returns to ED if symptoms returns
--- NOTE | 2018-11-03 16:20 | PCM.HF ---
Heart Failure Core Measure - Heart Failure Ejection Fraction: 40 % or Greater IZZY Inhibitor Prescribed: No Contraindication/Reason for not providing: EF>45 Beta-Jailene Prescribed: Metoprolol Succinate Angiotensin II Receptor Jailene Prescribed: No Contraindication/Reason for not providing: EF>45 AnticoagulationTherapy for Atrial Fibrillation/Atrialflutter: No Contraindication/Reason for not providing: NO HX OF A FIB Aldosterone Antagonist Prescribed: No Contraindication/Reason for not providing: EF>45 Hydralazine Nitrate Prescribed: No Contraindication/Reason for not providing: EF>45 Implantable Cardioverter Defibrillator Therapy: Yes Contraindication/Reason for not providing: PT HAS icd Cardiac Resynchronization Therapy Prescribed: No Contraindication/Reason for not providing: PT [facility] ICD - Follow up Will be discharged to: Home Follow Up Date (must be within 7 days from discharge): 11/06/18 Follow Up Time: 15:00
--- NOTE | 2018-11-03 22:13 | CP.PCM.DIS ---
Provider - Provider Date of Admission: 10/30/18 18:21 Attending physician: Jeffrey Turcios MD Consults: 10/30/18 14:57 Physician Consult Routine Comment: Consulting Provider: Brannon Navarrete Consulting Physician: Brannon Navarrete Reason for Consult: chest pain Time Spent in preparation of Discharge (in minutes): 45 Hospital Course - Lab Results Lab Results: Micro Results 10/29/18 23:30 Blood Blood Culture - Preliminary NO GROWTH AFTER 4 DAYS 10/29/18 23:00 Blood Blood Culture - Preliminary NO GROWTH AFTER 4 DAYS Most Recent Lab Values WBC 11.4 K/uL (4.8-10.8) H 11/03/18 07:33 RBC 4.72 Mil/uL (3.80-5.20) 11/03/18 07:33 Hgb 14.3 g/dL (11.0-16.0) 11/03/18 07:33 Hct 41.7 % (34.0-47.0) 11/03/18 07:33 MCV 88.2 fL (81.0-99.0) 11/03/18 07:33 MCH 30.3 pg (27.0-31.0) 11/03/18 07:33 MCHC 34.4 g/dL (33.0-37.0) 11/03/18 07:33 RDW 13.8 % (11.5-14.5) 11/03/18 07:33 Plt Count 411 K/uL (130-400) H 11/03/18 07:33 MPV 8.4 fL (7.2-11.7) 11/03/18 07:33 Neut % (Auto) 64.3 % (50.0-75.0) 10/29/18 22:20 Lymph % (Auto) 25.9 % (20.0-40.0) 10/29/18 22:20 [place] % (Auto) 7.3 % (0.0-10.0) 10/29/18 22:20 Eos % (Auto) 2.1 % (0.0-4.0) 10/29/18 22:20 Baso % (Auto) 0.4 % (0.0-2.0) 10/29/18 22:20 Neut # (Auto) 6.8 K/uL (1.8-7.0) 10/29/18 22:20 Lymph # (Auto) 2.7 K/uL (1.0-4.3) 10/29/18 22:20 [place] # (Auto) 0.8 K/uL (0.0-0.8) 10/29/18 22:20 Eos # (Auto) 0.2 K/uL (0.0-0.7) 10/29/18 22:20 Baso # (Auto) 0.0 K/uL (0.0-0.2) 10/29/18 22:20 PT 12.0 SECONDS (9.7-12.2) 10/29/18 22:20 INR 1.1 10/29/18 22:20 APTT 37.6 SECONDS (21-34) H 10/29/18 22:20 Sodium 139 mmol/L (132-148) 11/03/18 07:33 Potassium 4.4 mmol/L (3.6-5.2) 11/03/18 07:33 Chloride 98 mmol/L (98-107) 11/03/18 07:33 Carbon Dioxide 31 mmol/L (22-30) H 11/03/18 07:33 Anion Gap 14 (10-20) 11/03/18 07:33 BUN 35 mg/dL (7-17) H 11/03/18 07:33 Creatinine 0.9 mg/dL (0.7-1.2) 11/03/18 07:33 Est GFR ( Amer) > 60 11/03/18 07:33 Est GFR (Non-Af Amer) > 60 11/03/18 07:33 Random Glucose 189 mg/dL (65-105) H 11/03/18 07:33 Calcium 9.8 mg/dl (8.6-10.4) 11/03/18 07:33 Total Bilirubin 0.3 mg/dL (0.2-1.3) 10/29/18 22:20 AST 37 U/L (14-36) H 10/29/18 22:20 ALT 39 U/L (9-52) 10/29/18 22:20 Alkaline Phosphatase 139 U/L (38-126) H 10/29/18 22:20 Total Creatine Kinase 69 U/L (30-135) 10/30/18 14:40 CK-MB (Mass) 1.54 ng/mL (0.0-3.38) 10/30/18 14:40 Troponin I < 0.0120 ng/mL (0.00-0.120) 10/30/18 14:40 NT-Pro-B Natriuret Pep 760 pg/mL (0-900) 10/29/18 22:20 Total Protein 7.4 g/dL (6.3-8.3) 10/29/18 22:20 Albumin 4.1 g/dL (3.5-5.0) 10/29/18 22:20 Globulin 3.3 gm/dL (2.2-3.9) 10/29/18 22:20 Albumin/Globulin Ratio 1.2 (1.0-2.1) 10/29/18 22:20 Urine Color Yellow (YELLOW) 10/30/18 02:51 Urine Clarity Hazy (Clear) 10/30/18 02:51 Urine pH 6.0 (5.0-8.0) 10/30/18 02:51 Ur Specific [place] 1.026 (1.003-1.030) 10/30/18 02:51 Urine Protein Negative mg/dL (NEGATIVE) 10/30/18 02:51 Urine Glucose (UA) Normal mg/dL (Normal) 10/30/18 02:51 Urine Ketones Negative mg/dL (NEGATIVE) 10/30/18 02:51 Urine Blood Negative (NEGATIVE) 10/30/18 02:51 Urine Nitrate Negative (NEGATIVE) 10/30/18 02:51 Urine Bilirubin Negative (NEGATIVE) 10/30/18 02:51 Urine Urobilinogen 2.0 mg/dL (0.2-1.0) H 10/30/18 02:51 Ur Leukocyte Esterase 3+ Keyla/uL (Negative) H 10/30/18 02:51 Urine WBC (Auto) 72 /hpf (0-5) H 10/30/18 02:51 Urine RBC (Auto) 6 /hpf (0-3) H 10/30/18 02:51 Ur Squamous Epith Cells 2 /hpf (0-5) 10/30/18 02:51 Urine Bacteria Rare (<OCC) 10/30/18 02:51 Hyaline Casts 6-10 /lpf (0-2) H 10/30/18 02:51 Granular Casts (Auto) 2 /lpf (0-1) 10/30/18 02:51 Discharge Plan - Discharge Medications Prescriptions: predniSONE [Prednisone] 20 mg PO DAILY #3 tab - Follow Up Plan Condition: STABLE Disposition: HOME/ ROUTINE Instructions: Heart Healthy Diet, Heart Failure, Adult (DC), Chest Pain (DC), Exacerbation of COPD (DC) Additional Instructions: Please follow up Dr. Barrientos office in 1 week Please follow with Dr. Jones office in 1 week Please resume all home medications Referrals: Cedric Barrientos MD [Staff Provider] - Porfirio Jones MD [Staff Provider] -
--- NOTE | 2018-11-04 05:05 | DS ---
DISCHARGE DIAGNOSES: 1. Exacerbation of congestive heart failure. 2. Exacerbation of chronic obstructive pulmonary disease. 3. Hypertension. HISTORY OF PRESENT ILLNESS: This is a 73-year-old female with a history of prior coronary artery disease, status post CABG; diabetes; hypertension; hyperlipidemia; COPD, who came in because of cough, congestion, shortness of breath, dyspnea at rest, dyspnea on exertion, wheezing, orthopnea, and generalized weakness. No fever. No chills. The patient was admitted to the floor, started on Solu-Medrol, oxygen, nebulizer treatment, Lasix, intake, output, daily body weight, and the patient's condition improved. The patient was seen by GI, and the patient was seen by Cardiology and Pulmonary. The patient did well, and she is for discharge. CONDITION UPON DISCHARGE: Stable. PHYSICAL EXAMINATION: VITAL SIGNS: Blood pressure 153/84, pulse 68, respiratory rate 20, and temperature 98.3. LUNGS: Bilateral basal rales. CARDIOVASCULAR SYSTEM: S1 and S2, regular. ABDOMEN: Soft. PLAN: Discharge the patient. Normal outpatient followup. Jeffrey Turcios MD
--- NOTE | 2018-11-04 22:47 | PQF ---
PROVIDER RESPONSE TEXT: Acute chf REVIEWER QUERY TEXT: Heart Failure Acuity and Type Congestive Heart Failure is documented in the Medical Record. Please document the type and acuity (in cludes probable or suspected) Such as: Type: -- Combined systolic and diastolic (heart failure with reduced ejection fraction and diastolic) dysfu nction -- Diastolic (HFpEF) -- Systolic (HFrEF) -- Left heart failure -- Right heart failure -- Right heart failure due to left heart failure -- High output failure -- End stage heart failure -- Other, please specify Acuity: -- Acute -- Chronic -- Acute on chronic -- Other, please specify Also please document the underlying cause of the CHF (includes probable or suspected) The patient's Clinical Indicators include: COPD EXACERBATION, CHF, CAD, HTN S/P AICD,CABG Query created by: Chery Hernandez on 11/04/2018 3:23 PM Electronically signed by: Jeffrey Turcios MD 11/04/2018 10:44 PM
== END 2018-11-03 12:43 | disposition home or self-care (01) | DRG 192 ==
LOC: C.ER 21:34 → C.9E 22:57 → C.6T 23:23 → OBSVTOIN 10-30 18:21
PROVIDERS: ADMIT Internal Medicine; ATTEND Internal Medicine
DX: J43.9 Emphysema, unspecified (principal); I11.0 Hypertensive heart disease with heart failure; I50.9 Heart failure, unspecified; I25.10 Atherosclerotic heart disease of native coronary artery without angina pectoris; I25.5 Ischemic cardiomyopathy; E11.9 Type 2 diabetes mellitus without complications; R07.81 Pleurodynia; E78.5 Hyperlipidemia, unspecified; E78.00 Pure hypercholesterolemia, unspecified; M19.90 Unspecified osteoarthritis, unspecified site; Z95.810 Presence of automatic (implantable) cardiac defibrillator; Z87.891 Personal history of nicotine dependence; Z95.1 Presence of aortocoronary bypass graft; Z95.5 Presence of coronary angioplasty implant and graft; Z90.49 Acquired absence of other specified parts of digestive tract; Z98.49 Cataract extraction status, unspecified eye; Z79.84 Long term (current) use of oral hypoglycemic drugs

== ENCOUNTER 2018-11-06 13:54 | Observation (INO) | payer MEDICARE ==
[2018-11-06 13:54] VITALS: BMI 24.4
--- NOTE | 2018-11-06 15:13 | C.PDOC ---
History Of Present Illness PGY-[address] Schilling Patient is 73 year old female with pmhx of CAD, CHF, COPD, Anxiety comes to the ED for 3 days feeling weak and tired. Patient was recently admitted to hospital on 10/29 for PNA, and was discharged this past friday. Patient states she has been feeling tired, sleepy and dizzy since she came from hospital. As per at bedside, patient took lasix 20mg home medication and lasix 20mg prescribed at discharged. Admits to dry mouth, increased urination. Patient believes she is dehydrated. Patient denies fever, chills, chest pain, sob, n/v/d/c or urinary symptoms. Patient denies falls, trauma to head or loc. <Fernando Reardon - Last Filed: 11/06/18 20:27> <Surjit Schilling - Last Filed: 11/06/18 16:30> History Per: Patient, Family History/Exam Limitations: no limitations Onset/Duration Of Symptoms: Days Current Symptoms Are (Timing): Still Present Associated Symptoms Preceding Syncopal Episode: Lightheadedness Possible Causative Factor(s): Diurectics Fall Associated With With Symptoms: No - Symptoms Of CVA Associated Symptoms: denies: Impaired Speech, New Vision Deficit(Left), New Vision Deficit(Right), Decreased Ability To Walk Recent Head Trauma: No <Fernando Reardon - Last Filed: 11/06/18 20:27> Time Seen by Provider: 11/06/18 14:26 Chief Complaint (Nursing): Weakness/Neurological Deficit Past Medical History Vital Signs: Last Vital Signs Temp 98.0 F 11/06/18 14:15 Pulse 70 11/06/18 14:15 Resp 25 H 11/06/18 14:15 BP 134/70 11/06/18 14:15 Pulse Ox 98 11/06/18 14:15 Primary Care Provider: Bhavesh Dewitt - Medical History PMH: Anxiety, Arthritis, Back Problems (herniated discs), CAD, CHF, COPD, Depression, Diabetes, Deep Vein Thrombosis, Emphysema, HTN, Hypercholesterolemia, Hyperlipidemia Denies: Kidney Stones, Chronic Kidney Disease Surgical History: Appendectomy (1964), CABG (x4), Cholecystectomy (2001), Coronary Stent (x7), Pacemaker (mar 2010), Tonsillectomy (9 yrs old) - [facility] Procedures DRAINAGE OF SIGMOID COLON, ENDO, DIAGN (05/13/15) INJECT/INFUSE NEC (08/10/14) Family History: States: Unknown Family Hx - Social History Hx Tobacco Use: Yes Hx Alcohol Use: No Hx Substance Use: No - Immunization History Hx Tetanus Toxoid Vaccination: No Hx Influenza Vaccination: Yes Hx Pneumococcal Vaccination: Yes <Surjit Schilling - Last Filed: 11/06/18 16:30> Vital Signs: Last Vital Signs Temp 98.0 F 11/06/18 14:15 Pulse 70 11/06/18 14:15 Resp 25 H 11/06/18 14:15 BP 134/70 11/06/18 14:15 Pulse Ox 98 11/06/18 16:38 - [facility] Procedures DRAINAGE OF SIGMOID COLON, ENDO, DIAGN (05/13/15) INJECT/INFUSE NEC (08/10/14) <Fernando Reardon - Last Filed: 11/06/18 20:27> Review Of Systems Constitutional: Positive for: Sweats, Weakness. Negative for: Fever, Chills Eyes: Negative for: Vision Change Cardiovascular: Positive for: Light Headedness. Negative for: Chest Pain, Palpitations, Edema Respiratory: Negative for: Shortness of Breath, Wheezing Gastrointestinal: Negative for: Nausea, Vomiting, Abdominal Pain, Diarrhea, Constipation Genitourinary: Positive for: Frequency. Negative for: Dysuria Neurological: Positive for: Weakness, Dizziness. Negative for: Numbness, Change in Speech, Altered Mental Status, Headache Psych: Negative for: Anxiety, Depression <Fernando Reardon - Last Filed: 11/06/18 20:27> Physical Exam - Physical Exam Appears: Non-toxic, No Acute Distress Skin: Normal Color Head: Atraumatic, Normacephalic Eye(s): bilateral: Normal Inspection, PERRL, EOMI Oral Mucosa: Dry Lips: Normal Appearing Neck: Normal ROM Cardiovascular: Rhythm Regular Respiratory: Normal Breath Sounds, No Rales, No Rhonchi, No Wheezing Gastrointestinal/Abdominal: Normal Exam, Bowel Sounds, Soft, No Tenderness Back: Normal Inspection Extremity: Normal ROM, No Swelling Neurological/Psych: Oriented x3, Normal Speech, Normal Cognition, Normal Cranial Nerves, Normal Sensation, Normal Reflexes <Fernando Reardon - Last Filed: 11/06/18 20:27> ED Course And Treatment O2 Sat by Pulse Oximetry: 98 <Surjit Schilling - Last Filed: 11/06/18 16:30> - Laboratory Results Result Diagrams: 11/06/18 17:14 11/06/18 17:14 Lab Results: Puncture Site Rra 11/06/18 15:45 pCO2 40 mm/Hg (35-45) 11/06/18 15:45 pO2 89 mm/Hg (80-100) 11/06/18 15:45 HCO3 27.6 mmol/L (21-28) 11/06/18 15:45 ABG pH 7.45 (7.35-7.45) 11/06/18 15:45 ABG Total CO2 29.0 mmol/L (22-28) H 11/06/18 15:45 ABG O2 Saturation 97.8 % (95-98) 11/06/18 15:45 ABG Base Excess 3.5 mmol/L (-2.0-3.0) H 11/06/18 15:45 ABG Hemoglobin 12.1 g/dL (11.7-17.4) 11/06/18 15:45 ABG Carboxyhemoglobin 3.3 % (0.5-1.5) H 11/06/18 15:45 POC ABG HHb (Measured) 2.1 % (0.0-5.0) 11/06/18 15:45 ABG Methemoglobin 1.5 % (0.0-3.0) 11/06/18 15:45 Eric Test Pos 11/06/18 15:45 A-a O2 Difference 61.0 mm/Hg 11/06/18 15:45 Respiratory Index 0.7 11/06/18 15:45 Hgb O2 Saturation 93.2 % (95.0-98.0) L 11/06/18 15:45 Liter Flow 2.0 11/06/18 15:45 FiO2 28.0 % 11/06/18 15:45 Interpretation Of EC, atrial sensed ventricular paced rhythm, no STEMI Rate From EC - Radiology CXR: Read By Radiologist CXR Interpretation: Yes: No Acute Disease <Fernando Reardon - Last Filed: 11/06/18 20:27> Medical Decision Making Medical Decision Makin73 year old female recently discharged last friday, presents with weakness, dry mouth, states has taken two tablets of lasix po on friday, denies fever, chest pain, sob, patient AAOx3, responsive. Patient admits to taking 3 pills of xanax, one tablet of mirtazapine and one tablet of melatonin for sleep. - EKG - CBC, CMP, mg, phosp, troponin, proBNP - Urinalysis - Chest Xray -15:18 - Chest xray shows no acute disease, ABG results unremarkable, pending proBNP, troponin, CMP -16:00 - Dr Schilling spoke with Dr Turcios, to admit patient to hospital Plan discussed with Dr Shakir Reardon, PGY-1 <Fernando Reardon - Last Filed: 11/06/18 20:27> Disposition <Surjit Schilling - Last Filed: 11/06/18 16:30> Discussed With Dr.: Jeffrey Turcios Doctor Will See Patient In The: Hospital Counseled Patient/Family Regarding: Studies Performed - Disposition Disposition Time: 16:00 <Fernando Reardon - Last Filed: 11/06/18 20:27> - Disposition Disposition: HOSPITALIZED Condition: FAIR - Clinical Impression Clinical Impression: Weakness
[2018-11-06 15:52] LABS: ABG ALLEN TEST POS; ARTERIAL BLOOD GAS HCO3 27.6 mmol/L (21-28); ARTERIAL BLOOD GAS HEMOGLOBIN 12.1 g/dL (11.7-17.4); ARTERIAL BLOOD GAS O2 SAT 97.8 % (95-98); ARTERIAL BLOOD GAS PCO2 40 mm/Hg (35-45); ARTERIAL BLOOD GAS PH 7.45 (7.35-7.45); ARTERIAL BLOOD GAS PO2 89 mm/Hg (80-100)
--- NOTE | 2018-11-06 16:04 | RAD ---
Date of service: 11/06/2018 HISTORY: lethargy COMPARISON: 10/29/2018 TECHNIQUE: 1 view obtained. FINDINGS: LUNGS: No infiltrate. Please note that the left base is obscured by a pacemaker module. PLEURA: No significant pleural effusion identified, no pneumothorax apparent. CARDIOVASCULAR: No aortic atherosclerotic calcification present. Normal cardiac size. AICD noted. OSSEOUS STRUCTURES: No significant abnormalities. VISUALIZED UPPER ABDOMEN: Normal. OTHER FINDINGS: None. IMPRESSION: No active disease.
[2018-11-06 17:18] LABS: BASO % 0.2 % (0.0-2.0); EOS # 0.2 K/uL (0.0-0.7); EOS % 1.4 % (0.0-4.0); HEMOGLOBIN 13.3 g/dL (11.0-16.0); LYMPH # 2.7 K/uL (1.0-4.3); LYMPH % 20.9 % (20.0-40.0); MEAN CELL VOLUME 88.8 fL (81.0-99.0); MEAN CORPUSCULAR HEMOGLOBIN 29.3 pg (27.0-31.0); MEAN PLATELET VOLUME 8.4 fL (7.2-11.7); MONO # 1.1 K/uL (0.0-0.8); MONO % 8.6 % (0.0-10.0); NEUT # 8.8 K/uL (1.8-7.0); NEUT % 68.9 % (50.0-75.0); RBC 4.54 Mil/uL (3.80-5.20); RED CELL DISTRIBUTION WIDTH 14.2 % (11.5-14.5); WHITE BLOOD COUNT 12.8 K/uL (4.8-10.8)
[2018-11-06] MEDS: Dextrose 5%/0.45% NS 1,000 ML IV SCH (17:30)
[2018-11-06] MEDS ORDERED: Dextrose 5%/0.45% NS 1,000 ML IV ONE (17:30)
[2018-11-06 17:33] LABS: ALB/GLOB RATIO 1.3 (1.0-2.1); ALBUMIN 3.6 g/dL (3.5-5.0); ALT/SGPT 60 U/L (9-52); AST/SGOT 50 U/L (14-36); BLOOD UREA NITROGEN 32 mg/dL (7-17); GFR NON-AFRICAN AMERICAN 54
[2018-11-06 17:42] LABS: B-TYPE NATRIURETIC PEPTIDE 322 pg/mL (0-900)
[2018-11-06] MEDS: Albuterol-Ipratrop 3 mg / 0.5 (3 ml) UD INH SCH ×2 (18:30→19:00)
[2018-11-06] MEDS ORDERED: Albuterol-Ipratrop 3 mg / 0.5 (3 ml) UD ONE (18:34)
[2018-11-06] MEDS ORDERED: Ipratropium 0.02% Inhal Soln (0.5 mg/2.5 ml) UD IH SCH (20:00)
[2018-11-06 20:55] LABS: URINE BILIRUBIN NEGATIVE (NEGATIVE); URINE BLOOD NEGATIVE (NEGATIVE); URINE CLARITY Clear (Clear); URINE COLOR Yellow (YELLOW); URINE GLUCOSE (UA) 2+ mg/dL (Normal); URINE LEUKOCYTE ESTERASE TRACE Leu/uL (Negative); URINE PROTEIN NEGATIVE (NEGATIVE); URINE UROBILINOGEN NORMAL mg/dL (0.2-1.0)
[2018-11-06] MEDS ORDERED: Home Med 1 UNIT (Melatonin [Melatonin] 10 MG) PO SCH (22:00)
[2018-11-07] MEDS: Albuterol-Ipratrop 3 mg / 0.5 (3 ml) UD INH SCH ×5 (00:34→15:52)
--- NOTE | 2018-11-07 04:38 | CP.PCM.HP ---
Present on Admission - Present on Admission Any Indicators Present on Admission: No Past Patient History - Infectious Disease Hx of Infectious Diseases: None - Past Medical History & Family History Past Medical History?: Yes - Past Social History Smoking Status: Never Smoked - CARDIAC Hx Congestive Heart Failure: Yes Hx Hypercholesterolemia: Yes Hx Hypertension: Yes Hx Pacemaker: Yes (mar 2010) - PULMONARY Hx Chronic Obstructive Pulmonary Disease (COPD): Yes Hx Emphysema: Yes - NEUROLOGICAL Hx Neurological Disorder: No - HEENT Hx HEENT Problems: Yes Hx Cataracts: Yes (removed) - RENAL Hx Chronic Kidney Disease: No Hx Kidney Stones: No - ENDOCRINE/METABOLIC Hx Diabetes Mellitus Type 2: Yes - HEMATOLOGICAL/ONCOLOGICAL Hx Blood Disorders: No - INTEGUMENTARY Hx Dermatological Problems: No - MUSCULOSKELETAL/RHEUMATOLOGICAL Hx Arthritis: Yes - GASTROINTESTINAL Hx Gastrointestinal Disorders: No - GENITOURINARY/GYNECOLOGICAL Hx Genitourinary Disorders: No - PSYCHIATRIC Hx Anxiety: Yes Hx Depression: Yes Hx Substance Use: No - SURGICAL HISTORY Hx Appendectomy: Yes (1963) Hx Cholecystectomy: Yes (2001) Hx Coronary Artery Bypass Graft: Yes (x4) Hx Coronary Stent: Yes (x7) Hx Tonsillectomy: Yes (9 yrs old) - ANESTHESIA Hx Anesthesia: Yes Hx Anesthesia Reactions: No Hx Malignant Hyperthermia: No Meds Allergies/Adverse Reactions: Allergies Allergy/AdvReac Type Severity Reaction Status Date / Time acetaminophen [From Percocet] Allergy Verified 10/29/18 21:48 allopurinol Allergy Verified 10/29/18 22:06 ketorolac tromethamine Allergy Verified 10/29/18 21:48 [From Toradol] oxycodone HCl [From Percocet] Allergy Verified 10/29/18 21:48 pregabalin [From Lyrica] Allergy Verified 10/29/18 22:08 Results - Vital Signs Recent Vital Signs: Last Vital Signs Temp 98.2 F 11/06/18 23:30 Pulse 76 11/07/18 00:55 Resp 20 11/06/18 23:30 BP 154/78 H 11/07/18 04:32 Pulse Ox 95 11/06/18 23:30 - Labs Result Diagrams: 11/06/18 17:14 11/06/18 17:14 Labs: Laboratory Results - last 24 hr 11/06/18 11/06/18 11/06/18 14:00 15:45 17:14 WBC 12.8 H RBC 4.54 Hgb 13.3 Hct 40.4 MCV 88.8 MCH 29.3 MCHC 33.0 RDW 14.2 Plt Count 290 D MPV 8.4 Neut % (Auto) 68.9 Lymph % (Auto) 20.9 [place] % (Auto) 8.6 Eos % (Auto) 1.4 Baso % (Auto) 0.2 Neut # (Auto) 8.8 H Lymph # (Auto) 2.7 [place] # (Auto) 1.1 H Eos # (Auto) 0.2 Baso # (Auto) 0.0 Puncture Site Rra pCO2 40 pO2 89 HCO3 27.6 ABG pH 7.45 ABG Total CO2 29.0 H ABG O2 Saturation 97.8 ABG Base Excess 3.5 H ABG Hemoglobin 12.1 ABG Carboxyhemoglobin 3.3 H POC ABG HHb (Measured) 2.1 ABG Methemoglobin 1.5 Eric Test Pos A-a O2 Difference 61.0 Respiratory Index 0.7 Hgb O2 Saturation 93.2 L Liter Flow 2.0 FiO2 28.0 Sodium Potassium Chloride Carbon Dioxide Anion Gap BUN Creatinine Est GFR ( Amer) Est GFR (Non-Af Amer) POC Glucose (mg/dL) 184 H Random Glucose Calcium Phosphorus Magnesium Total Bilirubin AST ALT Alkaline Phosphatase Troponin I NT-Pro-B Natriuret Pep Total Protein Albumin Globulin Albumin/Globulin Ratio Urine Color Urine Clarity Urine pH Ur Specific [place] Urine Protein Urine Glucose (UA) Urine Ketones Urine Blood Urine Nitrate Urine Bilirubin Urine Urobilinogen Ur Leukocyte Esterase Urine WBC (Auto) Urine RBC (Auto) 11/06/18 11/06/18 17:14 20:41 WBC RBC Hgb Hct MCV MCH MCHC RDW Plt Count MPV Neut % (Auto) Lymph % (Auto) [place] % (Auto) Eos % (Auto) Baso % (Auto) Neut # (Auto) Lymph # (Auto) [place] # (Auto) Eos # (Auto) Baso # (Auto) Puncture Site pCO2 pO2 HCO3 ABG pH ABG Total CO2 ABG O2 Saturation ABG Base Excess ABG Hemoglobin ABG Carboxyhemoglobin POC ABG HHb (Measured) ABG Methemoglobin Eric Test A-a O2 Difference Respiratory Index Hgb O2 Saturation Liter Flow FiO2 Sodium 135 Potassium 4.8 Chloride 99 Carbon Dioxide 27 Anion Gap 14 BUN 32 H Creatinine 1.0 Est GFR ( Amer) > 60 Est GFR (Non-Af Amer) 54 POC Glucose (mg/dL) Random Glucose 128 H D Calcium 9.0 Phosphorus 3.8 Magnesium 2.4 H Total Bilirubin 0.5 AST 50 H D ALT 60 H D Alkaline Phosphatase 100 Troponin I < 0.0120 NT-Pro-B Natriuret Pep 322 Total Protein 6.3 Albumin 3.6 Globulin 2.7 Albumin/Globulin Ratio 1.3 Urine Color Yellow Urine Clarity Clear Urine pH 7.0 Ur Specific [place] 1.013 Urine Protein Negative Urine Glucose (UA) 2+ H Urine Ketones Negative Urine Blood Negative Urine Nitrate Negative Urine Bilirubin Negative Urine Urobilinogen Normal Ur Leukocyte Esterase Trace Urine WBC (Auto) 6 H Urine RBC (Auto) 1
[2018-11-07] MEDS ORDERED: Fluticasone Nasal 50 mcg/Spray NS SCH (10:00)
--- NOTE | 2018-11-07 11:47 | CP.PCM.CON ---
History of Present Illness - History of Present Illness History of Present Illness: Patient is 73 year old female with pmhx of CAD, CHF, COPD, Anxiety comes to the ED for 3 days feeling weak and tired. Patient was recently admitted to hospital on 10/29 for PNA, and was discharged this past friday. Patient states she has been feeling tired, sleepy and dizzy since she came from hospital. As per at bedside, patient took lasix 20mg home medication and lasix 20mg prescribed at discharged. Admits to dry mouth, increased urination. Patient believes she is dehydrated. Patient denies fever, chills, chest pain, sob, n/v/d/c or urinary symptoms. Patient denies falls, trauma to head or loc. Ordinarily she is functional class 2 and lives at home with : she is capable of light chores and mostly stays indoors. PMHX/PSHX: HTN, LIPIDS, PPM/AICD (BiV) medtr[employer], CAD CABG 2009 ([place]), ? coronary stent placement, severe COPD, arthritis SochX: Current smoker, occasional ETOH, no IVDA Last stress test was done in [facility]: 03/29/15 showing apical scar no reversible ischemia and last echo was done in 04/2016 showing mild reduction in LVEF 45-50% with LVH and grade 1 diastolic dysfunction. These images were directly viewed by me. Last BIV AICD check was 10/2018: Normal function, no malignant arrythmias, battery >4 years Currently there is improvement in breathing, no fever, improved cough and no active anginal symptoms. Labs: mild leokocytosis, mild transaminitis, normal creat, normal K+, stable H/H Review of Systems - Review of Systems All systems: reviewed and no additional remarkable complaints except Past Patient History - Infectious Disease Hx of Infectious Diseases: None - Past Medical History & Family History Past Medical History?: Yes - Past Social History Smoking Status: Never Smoked - CARDIAC Hx Congestive Heart Failure: Yes Hx Hypercholesterolemia: Yes Hx Hypertension: Yes Hx Pacemaker: Yes (mar 2010) - PULMONARY Hx Chronic Obstructive Pulmonary Disease (COPD): Yes Hx Emphysema: Yes - NEUROLOGICAL Hx Neurological Disorder: No - HEENT Hx HEENT Problems: Yes Hx Cataracts: Yes (removed) - RENAL Hx Chronic Kidney Disease: No Hx Kidney Stones: No - ENDOCRINE/METABOLIC Hx Diabetes Mellitus Type 2: Yes - HEMATOLOGICAL/ONCOLOGICAL Hx Blood Disorders: No - INTEGUMENTARY Hx Dermatological Problems: No - MUSCULOSKELETAL/RHEUMATOLOGICAL Hx Arthritis: Yes - GASTROINTESTINAL Hx Gastrointestinal Disorders: No - GENITOURINARY/GYNECOLOGICAL Hx Genitourinary Disorders: No - PSYCHIATRIC Hx Anxiety: Yes Hx Depression: Yes Hx Substance Use: No - SURGICAL HISTORY Hx Appendectomy: Yes (1964) Hx Cholecystectomy: Yes (2002) Hx Coronary Artery Bypass Graft: Yes (x4) Hx Coronary Stent: Yes (x7) Hx Tonsillectomy: Yes (9 yrs old) - ANESTHESIA Hx Anesthesia: Yes Hx Anesthesia Reactions: No Hx Malignant Hyperthermia: No Meds Allergies/Adverse Reactions: Allergies Allergy/AdvReac Type Severity Reaction Status Date / Time acetaminophen [From Percocet] Allergy Verified 10/29/18 21:48 allopurinol Allergy Verified 10/29/18 22:06 ketorolac tromethamine Allergy Verified 10/29/18 21:48 [From Toradol] oxycodone HCl [From Percocet] Allergy Verified 10/29/18 21:48 pregabalin [From Lyrica] Allergy Verified 10/29/18 22:08 - Medications Medications: Current Medications Albuterol/Ipratropium (Duoneb 3 Mg/0.5 Mg (3 Ml) Ud) 3 ml INH RQ4 [facility] Last Admin: 11/07/18 11:23 Dose: 3 ml Alprazolam (Xanax) 0.25 mg PO HS [facility] Last Admin: 11/06/18 21:54 Dose: 0.25 mg Aspirin (Ecotrin) 81 mg PO DAILY [facility] Last Admin: 11/07/18 09:11 Dose: 81 mg Carvedilol (Coreg) 12.5 mg PO BID [facility] Last Admin: 11/07/18 09:11 Dose: 12.5 mg Clopidogrel Bisulfate (Plavix) 75 mg PO DAILY [facility] Last Admin: 11/07/18 09:11 Dose: 75 mg Fluticasone Propionate (Flonase) 1 spr NS DAILY [facility] Heparin Sodium (Porcine) (Heparin) 5,000 units SC Q12 [facility] Last Admin: 11/07/18 11:17 Dose: 5,000 units Home Med (Melatonin [Melatonin]) 10 mg PO HS [facility] Dextrose/Sodium Chloride (Dextrose 5%/0.45% Ns 1000 Ml) 1,000 mls @ 30 mls/hr IV .Q24H [facility] Last Admin: 11/06/18 17:30 Dose: 30 mls/hr Isosorbide Mononitrate (Imdur Er) 30 mg PO DAILY [facility] Last Admin: 11/07/18 09:11 Dose: 30 mg Mirtazapine (Remeron) 15 mg PO HS [facility] Last Admin: 11/06/18 21:54 Dose: 15 mg Rosuvastatin Calcium (Crestor) 5 mg PO HS [facility] Last Admin: 11/06/18 21:54 Dose: 5 mg Rosuvastatin Calcium (Crestor) 10 mg PO DAILY [facility] Last Admin: 11/07/18 09:11 Dose: 10 mg Sertraline HCl (Zoloft) 50 mg PO DAILY [facility] Last Admin: 11/07/18 09:11 Dose: 50 mg Physical Exam - Constitutional Appears: No Acute Distress - Head Exam Head Exam: ATRAUMATIC, NORMAL INSPECTION, NORMOCEPHALIC - Eye Exam Eye Exam: EOMI, Normal appearance. absent: Scleral icterus - ENT Exam ENT Exam: Mucous Membranes Moist, Normal Oropharynx - Neck Exam Neck exam: Positive for: Full Rom, Normal Inspection (No JVD). Negative for: Tenderness, Thyromegaly - Respiratory Exam Respiratory Exam: absent: Clear to Auscultation Bilateral (b/l crepitation and rales at bases B/L, no wheeze) - GI/Abdominal Exam GI & Abdominal Exam: Normal Bowel Sounds, Soft. absent: Tenderness - Extremities Exam Extremities exam: Positive for: normal inspection. Negative for: calf tenderness, pedal edema - Neurological Exam Neurological exam: Alert, Oriented x3 - Psychiatric Exam Psychiatric exam: Anxious, Normal Affect - Skin Skin Exam: Normal Color, Warm Results - Vital Signs Recent Vital Signs: Last Vital Signs Temp 98.2 F 11/07/18 07:02 Pulse 70 11/07/18 08:10 Resp 18 11/07/18 07:02 BP 140/70 11/07/18 09:11 Pulse Ox 94 L 11/07/18 07:02 - Labs Result Diagrams: 11/06/18 17:14 11/06/18 17:14 Labs: Laboratory Results - last 24 hr 11/06/18 11/06/18 11/06/18 14:00 15:45 17:14 WBC 12.8 H RBC 4.54 Hgb 13.3 Hct 40.4 MCV 88.8 MCH 29.3 MCHC 33.0 RDW 14.2 Plt Count 290 D MPV 8.4 Neut % (Auto) 68.9 Lymph % (Auto) 20.9 [place] % (Auto) 8.6 Eos % (Auto) 1.4 Baso % (Auto) 0.2 Neut # (Auto) 8.8 H Lymph # (Auto) 2.7 [place] # (Auto) 1.1 H Eos # (Auto) 0.2 Baso # (Auto) 0.0 Puncture Site Rra pCO2 40 pO2 89 HCO3 27.6 ABG pH 7.45 ABG Total CO2 29.0 H ABG O2 Saturation 97.8 ABG Base Excess 3.5 H ABG Hemoglobin 12.1 ABG Carboxyhemoglobin 3.3 H POC ABG HHb (Measured) 2.1 ABG Methemoglobin 1.5 Eric Test Pos A-a O2 Difference 61.0 Respiratory Index 0.7 Hgb O2 Saturation 93.2 L Liter Flow 2.0 FiO2 28.0 Sodium Potassium Chloride Carbon Dioxide Anion Gap BUN Creatinine Est GFR ( Amer) Est GFR (Non-Af Amer) POC Glucose (mg/dL) 184 H Random Glucose Calcium Phosphorus Magnesium Total Bilirubin AST ALT Alkaline Phosphatase Troponin I NT-Pro-B Natriuret Pep Total Protein Albumin Globulin Albumin/Globulin Ratio Urine Color Urine Clarity Urine pH Ur Specific [place] Urine Protein Urine Glucose (UA) Urine Ketones Urine Blood Urine Nitrate Urine Bilirubin Urine Urobilinogen Ur Leukocyte Esterase Urine WBC (Auto) Urine RBC (Auto) 11/06/18 11/06/18 17:14 20:41 WBC RBC Hgb Hct MCV MCH MCHC RDW Plt Count MPV Neut % (Auto) Lymph % (Auto) [place] % (Auto) Eos % (Auto) Baso % (Auto) Neut # (Auto) Lymph # (Auto) [place] # (Auto) Eos # (Auto) Baso # (Auto) Puncture Site pCO2 pO2 HCO3 ABG pH ABG Total CO2 ABG O2 Saturation ABG Base Excess ABG Hemoglobin ABG Carboxyhemoglobin POC ABG HHb (Measured) ABG Methemoglobin Eric Test A-a O2 Difference Respiratory Index Hgb O2 Saturation Liter Flow FiO2 Sodium 135 Potassium 4.8 Chloride 99 Carbon Dioxide 27 Anion Gap 14 BUN 32 H Creatinine 1.0 Est GFR ( Amer) > 60 Est GFR (Non-Af Amer) 54 POC Glucose (mg/dL) Random Glucose 128 H D Calcium 9.0 Phosphorus 3.8 Magnesium 2.4 H Total Bilirubin 0.5 AST 50 H D ALT 60 H D Alkaline Phosphatase 100 Troponin I < 0.0120 NT-Pro-B Natriuret Pep 322 Total Protein 6.3 Albumin 3.6 Globulin 2.7 Albumin/Globulin Ratio 1.3 Urine Color Yellow Urine Clarity Clear Urine pH 7.0 Ur Specific [place] 1.013 Urine Protein Negative Urine Glucose (UA) 2+ H Urine Ketones Negative Urine Blood Negative Urine Nitrate Negative Urine Bilirubin Negative Urine Urobilinogen Normal Ur Leukocyte Esterase Trace Urine WBC (Auto) 6 H Urine RBC (Auto) 1 - EKG Data EKG Interpreted by: Myself (BIV paced) - Imaging and Cardiology Chest x-ray Status: Image reviewed by me (poor quality, no obvious infiltrate or congestion, inc lung markings) Assessment & Plan - Assessment and Plan (Free Text) Assessment: 70 y/o woman with: CAD: hx of CABG 2009: normal stress test 2014 Mild ischemic cardiomyopathy EF ~45% Hx of BIV AICD normal function HTN, LIPIDS, COPD Active smoker presents with sx's of COPD exacerbation/bronchitis and pleuritic chest pain, generalized weakness with recent admission for PNA Known BIV AICD (Gen change Jan 2016) [employer] Known mild ischemic cardiomyopathy EF 45-50% on 05/01/16 outpatient known apical scar without reversible ischemia on stress test 2014 NT-PBNP not in range for acute CHF and clinically no volume overload EKG: BIV paced rhythm and stable; no arrythmia on tele labs wnl except mild leukocytosis , mild transaminitis, normal creat and K+ , TROP negative I suggest to continue her current therapy: Her sx's are predominantly related to pneumonitis and not acute CHF. Smoking cessation strongly advised. Coreg 12.5 BID ASA 81, Plavix 75 Crestor 10 Isosorbide 30 Given hx of mild ischemic cardiomyopathy; Suggest ARB (Cozaar) if no contraindications...BP is normal and should be tolerated I agree with pulmonary consult and optimization of COPD rx DVT prophylaxis.
[2018-11-07] MEDS: Dextrose 5%/0.45% NS 1,000 ML IV SCH (13:46)
--- NOTE | 2018-11-07 15:05 | CP.PCM.PN ---
Subjective - Date & Time of Evaluation Date of Evaluation: 11/07/18 Time of Evaluation: 15:05 - Subjective Subjective: PATIENT SEEN AND EXAMINED AT THE BEDSIDE Objective - Vital Signs/Intake and Output Vital Signs (last 24 hours): Temp Pulse Resp BP Pulse Ox 98.2 F 71 18 140/70 94 L 11/07/18 07:02 11/07/18 11:45 11/07/18 07:02 11/07/18 09:11 11/07/18 07:02 Intake and Output: 11/07/18 11/07/18 06:59 18:59 Intake Total 240 690 Balance 240 690 - Medications Medications: Current Medications Albuterol/Ipratropium (Duoneb 3 Mg/0.5 Mg (3 Ml) Ud) 3 ml INH RQ4 [facility] Last Admin: 11/07/18 11:23 Dose: 3 ml Alprazolam (Xanax) 0.25 mg PO HS [facility] Last Admin: 11/06/18 21:54 Dose: 0.25 mg Aspirin (Ecotrin) 81 mg PO DAILY [facility] Last Admin: 11/07/18 09:11 Dose: 81 mg Carvedilol (Coreg) 12.5 mg PO BID [facility] Last Admin: 11/07/18 09:11 Dose: 12.5 mg Clopidogrel Bisulfate (Plavix) 75 mg PO DAILY [facility] Last Admin: 11/07/18 09:11 Dose: 75 mg Fluticasone Propionate (Flonase) 1 spr NS DAILY [facility] Last Admin: 11/07/18 12:00 Dose: Not Given Heparin Sodium (Porcine) (Heparin) 5,000 units SC Q12 [facility] Last Admin: 11/07/18 11:17 Dose: 5,000 units Home Med (Melatonin [Melatonin]) 10 mg PO [facility] Dextrose/Sodium Chloride (Dextrose 5%/0.45% Ns 1000 Ml) 1,000 mls @ 30 mls/hr IV .Q24H [facility] Last Admin: 11/07/18 13:46 Dose: 30 mls/hr Isosorbide Mononitrate (Imdur Er) 30 mg PO DAILY [facility] Last Admin: 11/07/18 09:11 Dose: 30 mg Mirtazapine (Remeron) 15 mg PO HS [facility] Last Admin: 11/06/18 21:54 Dose: 15 mg Rosuvastatin Calcium (Crestor) 5 mg PO [facility] Last Admin: 11/06/18 21:54 Dose: 5 mg Rosuvastatin Calcium (Crestor) 10 mg PO DAILY [facility] Last Admin: 11/07/18 09:11 Dose: 10 mg Sertraline HCl (Zoloft) 50 mg PO DAILY [facility] Last Admin: 11/07/18 09:11 Dose: 50 mg - Labs Labs: 11/06/18 17:14 11/06/18 17:14 Assessment and Plan - Assessment and Plan (Free Text) Assessment: FOLLOW UP WITH DR MORALES IN HIS OFFICE ---CALL FOR APPOINTMENT CONTINUE HOME MEDICATION NEW PRESCRIPTION GIVEN PREDNISONE TAPER ACTIVITY TOLERATED CALL DR MORALES OR GO TO THE EMERGENCY ROOM IF SYMPTOM RETURN OR WORSENING
[2018-11-07 16:11] VITALS: BP 109/69; PULSE 80; RESP 20; TEMP 99.4; O2SAT 96
--- NOTE | 2018-11-07 19:38 | CP.PCM.DIS ---
Provider - Provider Date of Admission: 11/06/18 16:39 Attending physician: Jeffrey Turcios MD Consults: 11/06/18 16:48 Cardiology Consult Routine Comment: Consulting Provider: Porfirio Jones Consulting Physician: Porfirio Jones Reason for Consult: cad 11/07/18 05:07 Pulmonology Consult Routine Comment: Consulting Provider: Bhavesh Dewitt Consulting Physician: Bhavesh Dewitt Reason for Consult: dyspnea Time Spent in preparation of Discharge (in minutes): 45 Hospital Course - Lab Results Lab Results: Most Recent Lab Values WBC 12.8 K/uL (4.8-10.8) H 11/06/18 17:14 RBC 4.54 Mil/uL (3.80-5.20) 11/06/18 17:14 Hgb 13.3 g/dL (11.0-16.0) 11/06/18 17:14 Hct 40.4 % (34.0-47.0) 11/06/18 17:14 MCV 88.8 fL (81.0-99.0) 11/06/18 17:14 MCH 29.3 pg (27.0-31.0) 11/06/18 17:14 MCHC 33.0 g/dL (33.0-37.0) 11/06/18 17:14 RDW 14.2 % (11.5-14.5) 11/06/18 17:14 Plt Count 290 K/uL (130-400) D 11/06/18 17:14 MPV 8.4 fL (7.2-11.7) 11/06/18 17:14 Neut % (Auto) 68.9 % (50.0-75.0) 11/06/18 17:14 Lymph % (Auto) 20.9 % (20.0-40.0) 11/06/18 17:14 Andrews % (Auto) 8.6 % (0.0-10.0) 11/06/18 17:14 Eos % (Auto) 1.4 % (0.0-4.0) 11/06/18 17:14 Baso % (Auto) 0.2 % (0.0-2.0) 11/06/18 17:14 Neut # (Auto) 8.8 K/uL (1.8-7.0) H 11/06/18 17:14 Lymph # (Auto) 2.7 K/uL (1.0-4.3) 11/06/18 17:14 Andrews # (Auto) 1.1 K/uL (0.0-0.8) H 11/06/18 17:14 Eos # (Auto) 0.2 K/uL (0.0-0.7) 11/06/18 17:14 Baso # (Auto) 0.0 K/uL (0.0-0.2) 11/06/18 17:14 Puncture Site Rra 11/06/18 15:45 pCO2 40 mm/Hg (35-45) 11/06/18 15:45 pO2 89 mm/Hg (80-100) 11/06/18 15:45 HCO3 27.6 mmol/L (21-28) 11/06/18 15:45 ABG pH 7.45 (7.35-7.45) 11/06/18 15:45 ABG Total CO2 29.0 mmol/L (22-28) H 11/06/18 15:45 ABG O2 Saturation 97.8 % (95-98) 11/06/18 15:45 ABG Base Excess 3.5 mmol/L (-2.0-3.0) H 11/06/18 15:45 ABG Hemoglobin 12.1 g/dL (11.7-17.4) 11/06/18 15:45 ABG Carboxyhemoglobin 3.3 % (0.5-1.5) H 11/06/18 15:45 POC ABG HHb (Measured) 2.1 % (0.0-5.0) 11/06/18 15:45 ABG Methemoglobin 1.5 % (0.0-3.0) 11/06/18 15:45 Eric Test Pos 11/06/18 15:45 A-a O2 Difference 61.0 mm/Hg 11/06/18 15:45 Respiratory Index 0.7 11/06/18 15:45 Hgb O2 Saturation 93.2 % (95.0-98.0) L 11/06/18 15:45 Liter Flow 2.0 11/06/18 15:45 FiO2 28.0 % 11/06/18 15:45 Sodium 135 mmol/L (132-148) 11/06/18 17:14 Potassium 4.8 mmol/L (3.6-5.2) 11/06/18 17:14 Chloride 99 mmol/L (98-107) 11/06/18 17:14 Carbon Dioxide 27 mmol/L (22-30) 11/06/18 17:14 Anion Gap 14 (10-20) 11/06/18 17:14 BUN 32 mg/dL (7-17) H 11/06/18 17:14 Creatinine 1.0 mg/dL (0.7-1.2) 11/06/18 17:14 Est GFR ( Amer) > 60 11/06/18 17:14 Est GFR (Non-Af Amer) 54 11/06/18 17:14 POC Glucose (mg/dL) 193 mg/dL (65-110) H 11/07/18 11:09 Random Glucose 128 mg/dL (65-105) H D 11/06/18 17:14 Calcium 9.0 mg/dl (8.6-10.4) 11/06/18 17:14 Phosphorus 3.8 mg/dL (2.5-4.5) 11/06/18 17:14 Magnesium 2.4 mg/dL (1.6-2.3) H 11/06/18 17:14 Total Bilirubin 0.5 mg/dL (0.2-1.3) 11/06/18 17:14 AST 50 U/L (14-36) H D 11/06/18 17:14 ALT 60 U/L (9-52) H D 11/06/18 17:14 Alkaline Phosphatase 100 U/L (38-126) 11/06/18 17:14 Troponin I < 0.0120 ng/mL (0.00-0.120) 11/06/18 17:14 NT-Pro-B Natriuret Pep 322 pg/mL (0-900) 11/06/18 17:14 Total Protein 6.3 g/dL (6.3-8.3) 11/06/18 17:14 Albumin 3.6 g/dL (3.5-5.0) 11/06/18 17:14 Globulin 2.7 gm/dL (2.2-3.9) 11/06/18 17:14 Albumin/Globulin Ratio 1.3 (1.0-2.1) 11/06/18 17:14 Urine Color Yellow (YELLOW) 11/06/18 20:41 Urine Clarity Clear (Clear) 11/06/18 20:41 Urine pH 7.0 (5.0-8.0) 11/06/18 20:41 Ur Specific [place] 1.013 (1.003-1.030) 11/06/18 20:41 Urine Protein Negative mg/dL (NEGATIVE) 11/06/18 20:41 Urine Glucose (UA) 2+ mg/dL (Normal) H 11/06/18 20:41 Urine Ketones Negative mg/dL (NEGATIVE) 11/06/18 20:41 Urine Blood Negative (NEGATIVE) 11/06/18 20:41 Urine Nitrate Negative (NEGATIVE) 11/06/18 20:41 Urine Bilirubin Negative (NEGATIVE) 11/06/18 20:41 Urine Urobilinogen Normal mg/dL (0.2-1.0) 11/06/18 20:41 Ur Leukocyte Esterase Trace Keyla/uL (Negative) 11/06/18 20:41 Urine WBC (Auto) 6 /hpf (0-5) H 11/06/18 20:41 Urine RBC (Auto) 1 /hpf (0-3) 11/06/18 20:41 Discharge Exam - Head Exam Head Exam: ATRAUMATIC, NORMAL INSPECTION, NORMOCEPHALIC Discharge Plan - Discharge Medications Prescriptions: predniSONE [Prednisone] 10 mg PO DAILY #11 tab - Follow Up Plan Condition: FAIR Disposition: HOME/ ROUTINE Additional Instructions: FOLLOW UP WITH DR TURCIOS IN HIS OFFICE ---CALL FOR APPOINTMENT CONTINUE HOME MEDICATION NEW PRESCRIPTION GIVEN PREDNISONE TAPER ACTIVITY TOLERATED CALL DR TURCIOS OR GO TO THE EMERGENCY ROOM IF SYMPTOM RETURN OR WORSENING Referrals: Porfirio Jones MD [Staff Provider] - Jeffrey Turcios MD [Staff Provider] - Bhavesh Dewitt MD [Staff Provider] -
--- NOTE | 2018-11-08 03:56 | DS ---
DISCHARGE DIAGNOSES: 1. Bronchial asthma. 2. Hypertension. 3. Coronary artery disease. 4. Hepatitis. HISTORY OF PRESENT ILLNESS: This is a 73-year-old female, recently discharged from [facility], who came in because of generalized weakness, cough, congestion, fever. The patient was seen last year, chronic interstitial pneumonitis. 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 The patient has LV ejection fraction of 45%. She has history of stent and she is stable cardiacwise. The patient feels better. She was given IV fluids. She is not short of breath. She has no fever, no chills. The patient is here for discharge. Condition upon discharge is stable. PHYSICAL EXAMINATION: VITAL SIGNS: Blood pressure , pulse 83, respiratory rate 20, temperature 99. LUNGS: Positive rhonchi. PLAN: Discharge the patient as outpatient. Followup with her PMD. Monitor the patient. Jeffrey Turcios MD
--- NOTE | 2018-11-09 10:22 | HP ---
CHIEF COMPLAINT: Weakness. HISTORY OF PRESENT ILLNESS: This is a 73-year-old female who has history of anxiety, COPD, congestive heart failure, coronary artery disease, hypertension, borderline , compliant with diet, medication and followup. The patient was recently discharged from [facility]. The patient was in [facility] with dyspnea, found to have exacerbation of COPD with that she was also having fluid overload. The patient was diuresed. The patient went home on Friday. As she felt weak, fatigue and she felt as if she is dehydrated, she drank large amount of water including Pedialyte and Gatorade and the patient on the day of admission is still feeling weak and she decided to come to emergency room. She denies any chest pain, nausea, or vomiting. She denies any chest pain. She denies any history of polyuria, polydipsia, or polyphagia. She denies any history of hematuria or polyuria. She denies any sneezing, itchy eyes, or itchy nose. She denies any chest pain or abdominal pain. She denies any hip pain. She denies any tingling, numbness, paresthesias. She is extremely anxious, somewhat agitated. Denies any history of joint pain or hip pain. She denies any history of tingling, numbness. PAST MEDICAL HISTORY: Positive for congestive heart failure, COPD, hypertension, hyperlipidemia, depression, anxiety. SOCIAL HISTORY: She is non-smoker. Non ethanol user. CURRENT MEDICATIONS: She is on a lot of medications including Zoloft, Crestor, Remeron, Imdur, Atrovent, Flonase, Plavix, Coreg, Lipitor, Ecotrin, Xanax, ?ProAir HFA, movantik, centrum, and DuoNeb. PHYSICAL EXAMINATION: GENERAL: An elderly female who is anxious, cooperative with the exam. VITAL SIGNS: Blood pressure 133/72, pulse 72, respiratory rate 20, temperature 98.2, earlier on blood pressure of 113/68. SKIN: No rashes. No bruising. No purpura. No petechiae. No ecchymosis. HEENT: Atraumatic, normocephalic. Negative pallor. Negative jaundice. Extraocular muscles are intact. NECK: Supple. No JVD. No lymph node. No thyromegaly. CHEST WALL: Bilateral symmetrical, nontender. LUNGS: Bilateral scattered rhonchi. Decreased air entry. CARDIOVASCULAR: S1, S2 regular. ABDOMEN: Soft, nontender. Bowel sounds positive. No masses. No visceromegaly. RECTAL/PELVIC: Negative. EXTREMITIES: No clubbing, cyanosis, or edema. CENTRAL NERVOUS SYSTEM: Awake, alert and oriented x3. ASSESSMENT: 1. Generalized weakness, it seems like this patient had got over diuresed. The patient is more on dry side. 2. Congestive heart failure. 3. Asthma, chronic obstructive pulmonary disease. 4. Hypertension. PLAN: IV fluids. Monitor labs. Monitor patient on telemetry. Jeffrey Turcios MD
== END 2018-11-07 16:35 | disposition home or self-care (01) ==
LOC: C.ER 13:54 → C.9E 16:39 → C.6T 20:33
PROVIDERS: ADMIT Internal Medicine; ATTEND Internal Medicine
DX: J44.1 Chronic obstructive pulmonary disease with (acute) exacerbation (principal); I11.0 Hypertensive heart disease with heart failure; I50.9 Heart failure, unspecified; I25.10 Atherosclerotic heart disease of native coronary artery without angina pectoris; K75.9 Inflammatory liver disease, unspecified; Z87.01 Personal history of pneumonia (recurrent); E78.5 Hyperlipidemia, unspecified; F41.9 Anxiety disorder, unspecified; F32.9 Major depressive disorder, single episode, unspecified; Z79.899 Other long term (current) drug therapy
CPT/HCPCS: 71045; 80053; 81001; 82803; 82948; 83735; 83880; 84100; 84484; 85025; 94640; 94760; 99285; G0378; J1644; J7042